=== PATIENT | male | born 1955 | race Caucasian/White ===

== ENCOUNTER 2022-04-12 13:09 | Inpatient (IN) | payer OTHER ==
[2022-04-12] MEDS ORDERED: SODIUM CHLORIDE 1,000 ML IV STA ×2 (13:46→14:57)
[2022-04-12] MEDS ORDERED: ACETAMINOPHEN 1000 MG/100 ML BAG IVPB ONE (13:46)
[2022-04-12] MEDS ORDERED: VANCOMYCIN 1 GM in D5W (PRE-DOCKED) 1,000 MG/250 ML IVPB ONE (14:01)
[2022-04-12] MEDS ORDERED: PIPERACILLIN/TAZOB 4.5 GM 4.5 GM in DEXTROSE 5%-WATER 100 ML IVPB ONE (14:01)
[2022-04-12] MEDS ORDERED: CALCIUM GLUCONATE 10% - 1,000 MG/10 ML VIAL IVPB ONE (14:03)
[2022-04-12] MEDS ORDERED: DEXTROSE 50%-WATER - 25 GM/50 ML VIAL IVPUSH ONE (14:04)
[2022-04-12] MEDS ORDERED: INSULIN REGULAR HUMAN 100 UNITS/ML *VIAL IVPUSH ONE (14:05)
[2022-04-12] MEDS ORDERED: ALBUTEROL SO4 0.083% IH SOL 2.5 MG/3 ML VIAL.NEB. NEB ONE ×2 (14:07→14:26)
[2022-04-12] MEDS ORDERED: PIPERACILLIN/TAZOB 4.5 GM 4.5 GM/100 ML BAG IVPB ONE (14:26)
[2022-04-12] MEDS ORDERED: DEXTROSE 50%-WATER 25 GM/50 ML DISP.SYRIN ONE (14:26)
[2022-04-12] MEDS ORDERED: CALCIUM GLUC IN NACL, ISO-OSM 1 GM/50 ML BAG IVPB ONE (14:26)
[2022-04-12] MEDS ORDERED: ACETAMINOPHEN INJECTION 100 ML IVPB ONE (14:26)
[2022-04-12] MEDS ORDERED: VANCOMYCIN/WATER FOR INJ (PEG) 1,000 MG/200 ML BAG IVPB ONE (14:27)
[2022-04-12 15:25] LABS: HEMATOCRIT 29.9 % (35.4-49); HEMOGLOBIN 9.8 GM/dL (11.7-16.9); MCH 31.3 pg (25.7-33.7); MCHC 32.7 g/dl (32.0-35.9); MEAN CELL VOLUME 95.7 fl (80-96); MEAN PLT VOLUME 8.2 fl (7.5-11.1); PLATELET COUNT 482 10^3/uL (134-434); RBC 3.12 M/mm3 (4.00-5.60); RDW 13.9 % (11.9-15.9); WHITE BLOOD COUNT 26.5 K/mm3 (4.0-10.0)
[2022-04-12 15:32] LABS: INR 1.15 (0.83-1.09); PROTHROMBIN TIME (PATIENT) 13.2 SEC (9.7-13.0)
[2022-04-12 15:35] LABS: ACTIVATED PTT 36.1 SECONDS (25.2-36.5); VENOUS BASE EXCESS -4.7 mmol/L (-2-2); VENOUS O2 SATURATION 75.1 % (70-80); VENOUS PCO2 42.3 mmHg (38-52); VENOUS PH 7.318 (7.310-7.410)
[2022-04-12 15:45] LABS: CHLORIDE 90 mmol/L (98-107); SODIUM 125 mmol/L (136-145)
[2022-04-12 15:46] LABS: ANISOCYTOSIS 3+; MACROCYTOSIS 0
[2022-04-12 15:47] LABS: ALBUMIN 2.4 g/dl (3.4-5.0)
[2022-04-12 15:48] LABS: CALCIUM 8.6 mg/dL (8.5-10.1); CO2 24 mmol/L (21-32); GLUCOSE,RANDOM 83 mg/dL (74-106)
[2022-04-12 15:49] LABS: CREATININE 0.7 mg/dL (0.55-1.3); SGPT/ALT 37 U/L (13-61)
[2022-04-12 15:51] LABS: SGOT/AST 33 U/L (15-37)
[2022-04-12 15:52] LABS: BILIRUBIN,TOTAL 0.3 mg/dL (0.2-1)
[2022-04-12 15:53] LABS: ALK PHOS 153 U/L (45-117)
[2022-04-12 15:55] LABS: ANION GAP 11 MMOL/L (8-16)
[2022-04-12 16:14] LABS: LACTIC ACID 2.3 mmol/L (0.4-2.0)
[2022-04-12] MEDS ORDERED: NOREPINEPHRINE BITARTRATE 4,000 MCG in DEXTROSE 5%-WATER - 496 ML IV SCH (17:00)
[2022-04-12] MEDS ORDERED: NOREPINEPHRINE BITARTRATE/D5W 8 MG/250 ML BAG IVPB ONE (17:10)
[2022-04-12] MEDS: NOREPINEPHRINE BITARTRATE/D5W 8 MG/250 ML BAG IVPB SCH (17:28)
[2022-04-12] MEDS ORDERED: AZITHROMYCIN IVPB 500 MG in DEXTROSE 5%-WATER - 250 ML IVPB ONE (17:48)
[2022-04-12] MEDS ORDERED: LACTATED RINGERS SOLUTION 1,000 ML/1,000 ML INFUS.BAG IV SCH (18:15)
[2022-04-12] MEDS ORDERED: metroNIDAZOLE 500 MG TABLET GT ONE (18:44)
[2022-04-12 18:50] LABS: URINE APPEARANCE CLOUDY; URINE BILIRUBIN NEGATIVE (NEGATIVE); URINE COLOR YELLOW; URINE GLUCOSE (UA) NEGATIVE (NEGATIVE); URINE KETONE NEGATIVE (NEGATIVE); URINE LEUK ESTERASE NEGATIVE (NEGATIVE); URINE NITRITE NEGATIVE (NEGATIVE); URINE PROTEIN TRACE (NEGATIVE); URINE UROBILINOGEN 0.2 mg/dL (0.2-1.0)
[2022-04-12] MEDS ORDERED: AZITHROMYCIN IVPB 500 MG/250 ML BAG IVPB ONE (19:16)
[2022-04-12] MEDS ORDERED: HEPARIN NA (PORCINE) 5,000 UNITS/ML 1ML VIAL ONE (21:32)
[2022-04-12] MEDS ORDERED: QUEtiapine FUMARATE 25 MG TABLET ONE (21:34)
[2022-04-12] MEDS ORDERED: ASCORBIC ACID 500 MG TABLET (FP) ONE (21:34)
[2022-04-12] MEDS ORDERED: PIPERACILLIN/TAZOB 3.375 GM 3.375 GM in DEXTROSE 5%-WATER - 50 ML IVPB SCH (22:00)
[2022-04-12 22:40] LABS: CALCIUM 8.5 mg/dL (8.5-10.1)
[2022-04-12 22:42] LABS: BLOOD UREA NITROGEN 64.5 mg/dL (7-18)
[2022-04-12 22:46] LABS: CREATININE 0.7 mg/dL (0.55-1.3)
[2022-04-13] MEDS: HEPARIN NA (PORCINE) 5,000 UNITS/ML 1ML VIAL SQ SCH ×4 (00:36→21:20)
[2022-04-13] MEDS: INSULIN SLIDING SCALE (NOVOLOG) 1 VIAL SQ SCH ×5 (00:36→21:33)
[2022-04-13] MEDS: ASCORBIC ACID 500 MG TABLET (FP) PO SCH ×3 (00:37→21:20)
[2022-04-13] MEDS: QUEtiapine FUMARATE 25 MG TABLET GT SCH ×2 (00:37→21:20)
[2022-04-13] MEDS: PIPERACILLIN/TAZOB 3.375 GM 3.375 GM in DEXTROSE 5%-WATER - 50 ML IVPB SCH ×2 (00:37→06:04)
[2022-04-13] MEDS: VANCOMYCIN 250 MG/5 ML ORAL SOLUTION GT SCH ×2 (01:00→06:53)
[2022-04-13] MEDS ORDERED: fentaNYL CITRATE 250 MCG/5 ML VIAL ONE (01:00)
[2022-04-13] MEDS ORDERED: MIDAZOLAM HCL 2 MG/2 ML SINGLE DOSE VIAL ONE (01:07)
[2022-04-13] MEDS ORDERED: DEXTROSE 5%-NORMAL SALINE 1,000 ML IV SCH (01:45)
[2022-04-13] MEDS ORDERED: MIDAZOLAM HCL 2 MG/2 ML SINGLE DOSE VIAL IVPUSH ONE (01:51)
[2022-04-13 07:26] LABS: HEMATOCRIT 23.4 % (35.4-49); HEMOGLOBIN 7.9 GM/dL (11.7-16.9); MCHC 33.6 g/dl (32.0-35.9); MEAN CELL VOLUME 95.4 fl (80-96); MEAN PLT VOLUME 8.2 fl (7.5-11.1); PLATELET COUNT 388 10^3/uL (134-434); RBC 2.46 M/mm3 (4.00-5.60); WHITE BLOOD COUNT 24.7 K/mm3 (4.0-10.0)
[2022-04-13 07:37] LABS: ACTIVATED PTT 37.1 SECONDS (25.2-36.5)
[2022-04-13 07:55] LABS: PHOSPHOROUS 4.1 mg/dL (2.5-4.9)
[2022-04-13 07:56] LABS: CREATININE 0.7 mg/dL (0.55-1.3)
[2022-04-13 07:57] LABS: BILIRUBIN,TOTAL 0.3 mg/dL (0.2-1); TOT PROT 5.8 g/dl (6.4-8.2)
[2022-04-13 08:21] LABS: INR 1.33 (0.83-1.09); PROTHROMBIN TIME (PATIENT) 15.3 SEC (9.7-13.0)
[2022-04-13 09:05] LABS: ANISOCYTOSIS 1+; MACROCYTOSIS 0
[2022-04-13] MEDS ORDERED: VANCOMYCIN 1 GM/200 ML PREMIX BAG (RESTRICTED TO ID ONLY) IVPB SCH (10:00)
[2022-04-13] MEDS ORDERED: VANCOMYCIN 1 GM in D5W (PRE-DOCKED) 1,000 MG/250 ML IVPB SCH (10:00)
[2022-04-13] MEDS: MUPIROCIN 2% TOPICAL OINTMENT FOR DECOLONIZATION NS SCH ×2 (10:07→21:20)
[2022-04-13] MEDS: FAMOTIDINE 40 MG/5 ML ORAL SUSPENSION GT SCH ×2 (10:08→21:32)
[2022-04-13] MEDS: VANCOMYCIN 250 MG/5 ML ORAL SOLUTION PO SCH ×3 (11:45→17:21)
[2022-04-13] MEDS: NYSTATIN POWDER 100,000 UNITS/GM - 15 GM TOPICAL POWDER TP SCH ×2 (11:47→21:21)
[2022-04-13] MEDS ORDERED: DEXTROSE 5%-0.45% SALINE 1,000 ML IV SCH ×2 (13:45→14:45)
[2022-04-13] MEDS ORDERED: SODIUM ZIRCONIUM CYCLOSILICATE (LOKELMA) 5 GM PACKET GT ONE (14:11)
[2022-04-13] MEDS: PANTOPRAZOLE SODIUM 40 MG VIAL IVPUSH SCH (14:23)
[2022-04-13] MEDS ORDERED: IRON SUCROSE INJECTION 200 MG in SODIUM CHLORIDE 90 ML IVPB ONE (15:15)
[2022-04-13] MEDS: MULTIVIT-MINERALS ORAL LIQUID GT SCH (16:15)
[2022-04-13] MEDS: AMINO ACIDS/PROTEIN HYDROLYS 30 ML LIQUID.PKT GT SCH (17:20)
[2022-04-13] MEDS: LEVOTHYROXINE NA 150 MCG TABLET GT SCH (17:20)
[2022-04-13] MEDS: CHLORHEXIDINE GLUCONATE 4% CLEANSER FOR DECOLONIZATION TP SCH (21:20)
[2022-04-13] MEDS: ZINC OXIDE 20% TOPICAL OINTMENT 30 GM TUBE TP SCH (21:21)
[2022-04-13] MEDS: METOPROLOL TARTRATE 50 MG TABLET (FP) GT SCH (22:35)
[2022-04-13 23:56] LABS: HEMOGLOBIN 7.3 GM/dL (11.7-16.9); MCH 31.9 pg (25.7-33.7); MCHC 33.4 g/dl (32.0-35.9); MEAN CELL VOLUME 95.4 fl (80-96); MEAN PLT VOLUME 7.7 fl (7.5-11.1); PLATELET COUNT 338 10^3/uL (134-434); RBC 2.31 M/mm3 (4.00-5.60); WHITE BLOOD COUNT 10.4 K/mm3 (4.0-10.0)
[2022-04-14 00:17] LABS: BLOOD UREA NITROGEN 58.6 mg/dL (7-18); CALCIUM 8.1 mg/dL (8.5-10.1)
[2022-04-14 00:20] LABS: CREATININE 0.7 mg/dL (0.55-1.3)
[2022-04-14] MEDS: VANCOMYCIN 250 MG/5 ML ORAL SOLUTION PO SCH ×4 (00:47→17:31)
[2022-04-14] MEDS ORDERED: DEXTROSE 5%-WATER 500 ML INFUS.BAG IVPB ONE (01:15)
[2022-04-14] MEDS: ZINC OXIDE 20% TOPICAL OINTMENT 30 GM TUBE TP SCH ×3 (05:15→21:52)
[2022-04-14] MEDS: ZINC SULFATE 220 MG TABLET GT SCH (06:13)
[2022-04-14] MEDS: INSULIN SLIDING SCALE (NOVOLOG) 1 VIAL SQ SCH ×4 (06:13→22:02)
[2022-04-14 07:22] LABS: HEMATOCRIT 22.9 % (35.4-49); HEMOGLOBIN 7.7 GM/dL (11.7-16.9); MCHC 33.5 g/dl (32.0-35.9); MEAN CELL VOLUME 95.5 fl (80-96); MEAN PLT VOLUME 7.8 fl (7.5-11.1); PLATELET COUNT 315 10^3/uL (134-434); WHITE BLOOD COUNT 8.6 K/mm3 (4.0-10.0)
[2022-04-14 07:44] LABS: ALBUMIN 1.8 g/dl (3.4-5.0); CALCIUM 7.9 mg/dL (8.5-10.1)
[2022-04-14 07:45] LABS: MAGNESIUM 1.7 mg/dL (1.8-2.4); PHOSPHOROUS 2.9 mg/dL (2.5-4.9)
[2022-04-14 07:46] LABS: CREATININE 0.7 mg/dL (0.55-1.3)
[2022-04-14 07:47] LABS: BILIRUBIN,TOTAL 0.3 mg/dL (0.2-1); TOT PROT 5.3 g/dl (6.4-8.2)
[2022-04-14] MEDS: AMINO ACIDS/PROTEIN HYDROLYS 30 ML LIQUID.PKT GT SCH ×2 (08:15→17:27)
[2022-04-14 09:07] LABS: ANISOCYTOSIS 3+; MACROCYTOSIS 0
[2022-04-14] MEDS: METOPROLOL TARTRATE 50 MG TABLET (FP) GT SCH ×2 (09:15→21:51)
[2022-04-14] MEDS: MULTIVIT-MINERALS ORAL LIQUID GT SCH (09:15)
[2022-04-14] MEDS: PANTOPRAZOLE SODIUM 40 MG VIAL IVPUSH SCH (09:16)
[2022-04-14] MEDS: THIAMINE HCL 200 MG/2 ML VIAL IVPB SCH (09:17)
[2022-04-14] MEDS: ENOXAPARIN NA (PORCINE) 40 MG/0.4 ML DISP.SYRIN SQ SCH (09:18)
[2022-04-14] MEDS: FAMOTIDINE 40 MG/5 ML ORAL SUSPENSION GT SCH ×2 (09:18→21:51)
[2022-04-14] MEDS: LACTOBACILLUS ACIDOPHILUS 1 TABLET GT SCH (09:18)
[2022-04-14] MEDS: MUPIROCIN 2% TOPICAL OINTMENT FOR DECOLONIZATION NS SCH ×2 (09:54→21:51)
[2022-04-14] MEDS: ASCORBIC ACID 500 MG TABLET (FP) PO SCH ×2 (09:55→21:51)
[2022-04-14] MEDS ORDERED: IRON SUCROSE INJECTION 200 MG in SODIUM CHLORIDE 90 ML IVPB ONE (10:00)
[2022-04-14] MEDS: LACTATED RINGERS SOLUTION 1,000 ML/1,000 ML INFUS.BAG IV SCH (10:00)
[2022-04-14] MEDS: NYSTATIN POWDER 100,000 UNITS/GM - 15 GM TOPICAL POWDER TP SCH ×2 (10:00→21:52)
[2022-04-14] MEDS: LEVOTHYROXINE NA 150 MCG TABLET GT SCH (17:31)
[2022-04-14] MEDS: NOREPINEPHRINE BITARTRATE/D5W 8 MG/250 ML BAG IVPB SCH (21:34)
[2022-04-14] MEDS: CHLORHEXIDINE GLUCONATE 4% CLEANSER FOR DECOLONIZATION TP SCH (21:51)
[2022-04-14] MEDS: QUEtiapine FUMARATE 25 MG TABLET GT SCH (21:51)
[2022-04-15] MEDS: VANCOMYCIN 250 MG/5 ML ORAL SOLUTION PO SCH ×4 (00:21→17:02)
[2022-04-15] MEDS: INSULIN SLIDING SCALE (NOVOLOG) 1 VIAL SQ SCH ×4 (06:20→21:38)
[2022-04-15] MEDS: ZINC OXIDE 20% TOPICAL OINTMENT 30 GM TUBE TP SCH ×3 (06:21→21:39)
[2022-04-15 07:55] LABS: HEMATOCRIT 22.9 % (35.4-49); HEMOGLOBIN 7.7 GM/dL (11.7-16.9); MCHC 33.6 g/dl (32.0-35.9); MEAN CELL VOLUME 95.3 fl (80-96); MEAN PLT VOLUME 7.9 fl (7.5-11.1); PLATELET COUNT 330 10^3/uL (134-434); RDW 14.2 % (11.9-15.9); WHITE BLOOD COUNT 9.3 K/mm3 (4.0-10.0)
[2022-04-15] MEDS: MULTIVIT-MINERALS ORAL LIQUID GT SCH (08:00)
[2022-04-15 08:11] LABS: CALCIUM 8.5 mg/dL (8.5-10.1)
[2022-04-15 08:12] LABS: BLOOD UREA NITROGEN 50.5 mg/dL (7-18); MAGNESIUM 1.8 mg/dL (1.8-2.4)
[2022-04-15 08:15] LABS: CREATININE 0.6 mg/dL (0.55-1.3)
[2022-04-15] MEDS: AMINO ACIDS/PROTEIN HYDROLYS 30 ML LIQUID.PKT GT SCH ×2 (08:28→16:50)
[2022-04-15] MEDS: ENOXAPARIN NA (PORCINE) 40 MG/0.4 ML DISP.SYRIN SQ SCH (09:29)
[2022-04-15] MEDS: FAMOTIDINE 40 MG/5 ML ORAL SUSPENSION GT SCH ×2 (09:30→21:38)
[2022-04-15] MEDS: METOPROLOL TARTRATE 50 MG TABLET (FP) GT SCH ×2 (09:30→21:38)
[2022-04-15] MEDS: LACTOBACILLUS ACIDOPHILUS 1 TABLET GT SCH (09:30)
[2022-04-15] MEDS: ASCORBIC ACID 500 MG TABLET (FP) PO SCH ×2 (09:30→21:37)
[2022-04-15] MEDS: LACTATED RINGERS SOLUTION 1,000 ML/1,000 ML INFUS.BAG IV SCH (09:31)
[2022-04-15] MEDS: MUPIROCIN 2% TOPICAL OINTMENT FOR DECOLONIZATION NS SCH ×2 (09:31→21:38)
[2022-04-15] MEDS ORDERED: IRON SUCROSE INJECTION 200 MG in SODIUM CHLORIDE 90 ML IVPB ONE (10:00)
[2022-04-15] MEDS: PANTOPRAZOLE SODIUM 40 MG VIAL IVPUSH SCH (10:04)
[2022-04-15] MEDS: THIAMINE HCL 200 MG/2 ML VIAL IVPB SCH (10:04)
[2022-04-15] MEDS: NYSTATIN POWDER 100,000 UNITS/GM - 15 GM TOPICAL POWDER TP SCH ×2 (10:05→21:38)
[2022-04-15] MEDS: LEVOTHYROXINE NA 150 MCG TABLET GT SCH (16:50)
[2022-04-15] MEDS ORDERED: ACETAMINOPHEN 1000 MG/100 ML BAG IVPB ONE (20:27)
[2022-04-15] MEDS ORDERED: ACETAMINOPHEN 650 MG/20.3 ML ORAL SOLUTION (CUPS) PO PRN (20:27)
[2022-04-15] MEDS: ZINC SULFATE 220 MG TABLET GT SCH (21:37)
[2022-04-15] MEDS: CHLORHEXIDINE GLUCONATE 4% CLEANSER FOR DECOLONIZATION TP SCH (21:38)
[2022-04-15] MEDS: NOREPINEPHRINE BITARTRATE/D5W 8 MG/250 ML BAG IVPB SCH (21:38)
[2022-04-15] MEDS: QUEtiapine FUMARATE 25 MG TABLET GT SCH (21:38)
[2022-04-15] MEDS: ASCORBIC ACID 500 MG TABLET (FP) GT SCH (21:59)
[2022-04-16] MEDS: VANCOMYCIN 250 MG/5 ML ORAL SOLUTION PO SCH ×4 (00:26→17:05)
[2022-04-16] MEDS: ZINC OXIDE 20% TOPICAL OINTMENT 30 GM TUBE TP SCH ×3 (06:03→21:56)
[2022-04-16] MEDS: INSULIN SLIDING SCALE (NOVOLOG) 1 VIAL SQ SCH ×4 (06:09→21:56)
[2022-04-16] MEDS: ZINC SULFATE 220 MG TABLET GT SCH (06:32)
[2022-04-16 07:30] LABS: HEMATOCRIT 23.9 % (35.4-49); HEMOGLOBIN 7.9 GM/dL (11.7-16.9); MCH 31.4 pg (25.7-33.7); MEAN CELL VOLUME 95.3 fl (80-96); MEAN PLT VOLUME 7.8 fl (7.5-11.1); PLATELET COUNT 298 10^3/uL (134-434); RDW 14.3 % (11.9-15.9); WHITE BLOOD COUNT 23.4 K/mm3 (4.0-10.0)
[2022-04-16 08:00] LABS: BLOOD UREA NITROGEN 46.6 mg/dL (7-18); CALCIUM 9.1 mg/dL (8.5-10.1); MAGNESIUM 1.6 mg/dL (1.8-2.4)
[2022-04-16 08:01] LABS: PHOSPHOROUS 2.4 mg/dL (2.5-4.9)
[2022-04-16 08:03] LABS: CREATININE 0.5 mg/dL (0.55-1.3)
[2022-04-16] MEDS: AMINO ACIDS/PROTEIN HYDROLYS 30 ML LIQUID.PKT GT SCH ×2 (08:53→16:53)
[2022-04-16] MEDS: ENOXAPARIN NA (PORCINE) 40 MG/0.4 ML DISP.SYRIN SQ SCH (09:53)
[2022-04-16] MEDS: MULTIVIT-MINERALS ORAL LIQUID GT SCH (09:53)
[2022-04-16] MEDS: FAMOTIDINE 40 MG/5 ML ORAL SUSPENSION GT SCH ×2 (09:53→21:56)
[2022-04-16] MEDS: ASCORBIC ACID 500 MG TABLET (FP) GT SCH ×2 (09:53→21:56)
[2022-04-16] MEDS: LACTOBACILLUS ACIDOPHILUS 1 TABLET GT SCH (09:53)
[2022-04-16] MEDS: METOPROLOL TARTRATE 50 MG TABLET (FP) GT SCH ×2 (09:54→21:56)
[2022-04-16] MEDS: PANTOPRAZOLE SODIUM 40 MG VIAL IVPUSH SCH (10:26)
[2022-04-16] MEDS: NYSTATIN POWDER 100,000 UNITS/GM - 15 GM TOPICAL POWDER TP SCH ×2 (10:38→21:56)
[2022-04-16] MEDS: THIAMINE HCL 200 MG/2 ML VIAL IVPB SCH (10:38)
[2022-04-16] MEDS: MUPIROCIN 2% TOPICAL OINTMENT FOR DECOLONIZATION NS SCH ×2 (10:39→21:56)
[2022-04-16] MEDS: LACTATED RINGERS SOLUTION 1,000 ML/1,000 ML INFUS.BAG IV SCH (10:39)
[2022-04-16] MEDS ORDERED: KETOCONAZOLE 2 % SHAMPOO 120 ML BOTTLE TP SCH (14:16)
[2022-04-16] MEDS: LEVOTHYROXINE NA 150 MCG TABLET GT SCH (16:53)
[2022-04-16] MEDS: NOREPINEPHRINE BITARTRATE/D5W 8 MG/250 ML BAG IVPB SCH (16:53)
[2022-04-16 18:55] LABS: HEMATOCRIT 23.9 % (35.4-49); HEMOGLOBIN 7.9 GM/dL (11.7-16.9); MCH 31.4 pg (25.7-33.7); MCHC 32.9 g/dl (32.0-35.9); MEAN CELL VOLUME 95.5 fl (80-96); MEAN PLT VOLUME 7.8 fl (7.5-11.1); PLATELET COUNT 283 10^3/uL (134-434); WHITE BLOOD COUNT 19.9 K/mm3 (4.0-10.0)
[2022-04-16] MEDS: CHLORHEXIDINE GLUCONATE 4% CLEANSER FOR DECOLONIZATION TP SCH (21:56)
[2022-04-16] MEDS: QUEtiapine FUMARATE 25 MG TABLET GT SCH (21:56)
[2022-04-17] MEDS: VANCOMYCIN 250 MG/5 ML ORAL SOLUTION PO SCH ×4 (00:30→17:00)
[2022-04-17] MEDS: ZINC OXIDE 20% TOPICAL OINTMENT 30 GM TUBE TP SCH ×3 (05:48→21:44)
[2022-04-17] MEDS: ZINC SULFATE 220 MG CAPSULE (FP) GT SCH (06:02)
[2022-04-17] MEDS: INSULIN SLIDING SCALE (NOVOLOG) 1 VIAL SQ SCH ×4 (06:09→22:05)
[2022-04-17 08:38] LABS: BASO % 0.6 % (0-2.0); EOS % 3.5 % (0-4.5); HEMATOCRIT 22.3 % (35.4-49); HEMOGLOBIN 7.3 GM/dL (11.7-16.9); LYMPH % 6.3 % (8-40); MCH 31.6 pg (25.7-33.7); MCHC 32.9 g/dl (32.0-35.9); MEAN CELL VOLUME 96.2 fl (80-96); MEAN PLT VOLUME 7.7 fl (7.5-11.1); MONO % 6.6 % (3.8-10.2); PLATELET COUNT 276 10^3/uL (134-434); RBC 2.32 M/mm3 (4.00-5.60); RDW 14.2 % (11.9-15.9); WHITE BLOOD COUNT 14.7 K/mm3 (4.0-10.0)
[2022-04-17 08:51] LABS: CALCIUM 8.9 mg/dL (8.5-10.1)
[2022-04-17 08:52] LABS: ALBUMIN 1.7 g/dl (3.4-5.0); BLOOD UREA NITROGEN 41.6 mg/dL (7-18)
[2022-04-17 08:55] LABS: CREATININE 0.5 mg/dL (0.55-1.3)
[2022-04-17 08:58] LABS: BILIRUBIN,TOTAL 0.2 mg/dL (0.2-1); TOT PROT 5.1 g/dl (6.4-8.2)
[2022-04-17] MEDS: ENOXAPARIN NA (PORCINE) 40 MG/0.4 ML DISP.SYRIN SQ SCH (09:15)
[2022-04-17] MEDS: PANTOPRAZOLE SODIUM 40 MG VIAL IVPUSH SCH (09:16)
[2022-04-17] MEDS: MUPIROCIN 2% TOPICAL OINTMENT FOR DECOLONIZATION NS SCH ×2 (09:16→21:44)
[2022-04-17] MEDS: AMINO ACIDS/PROTEIN HYDROLYS 30 ML LIQUID.PKT GT SCH ×2 (09:16→17:00)
[2022-04-17] MEDS: METOPROLOL TARTRATE 50 MG TABLET (FP) GT SCH ×2 (09:16→21:44)
[2022-04-17] MEDS: NYSTATIN POWDER 100,000 UNITS/GM - 15 GM TOPICAL POWDER TP SCH ×2 (09:16→21:44)
[2022-04-17] MEDS: ASCORBIC ACID 500 MG TABLET (FP) GT SCH ×2 (09:16→21:44)
[2022-04-17] MEDS: LACTOBACILLUS ACIDOPHILUS 1 TABLET GT SCH (09:16)
[2022-04-17] MEDS: MULTIVIT-MINERALS ORAL LIQUID GT SCH (09:16)
[2022-04-17] MEDS: THIAMINE HCL 200 MG/2 ML VIAL IVPB SCH (10:14)
[2022-04-17] MEDS: FAMOTIDINE 40 MG/5 ML ORAL SUSPENSION GT SCH ×2 (10:52→21:44)
[2022-04-17] MEDS: LACTATED RINGERS SOLUTION 1,000 ML/1,000 ML INFUS.BAG IV SCH (12:51)
[2022-04-17] MEDS: NOREPINEPHRINE BITARTRATE/D5W 8 MG/250 ML BAG IVPB SCH (16:59)
[2022-04-17] MEDS: LEVOTHYROXINE NA 150 MCG TABLET GT SCH (16:59)
[2022-04-17] MEDS: CHLORHEXIDINE GLUCONATE 4% CLEANSER FOR DECOLONIZATION TP SCH (21:44)
[2022-04-17] MEDS: QUEtiapine FUMARATE 25 MG TABLET GT SCH (21:44)
[2022-04-18] MEDS: VANCOMYCIN 250 MG/5 ML ORAL SOLUTION PO SCH ×5 (00:49→18:55)
[2022-04-18] MEDS: ACETAMINOPHEN 650 MG/20.3 ML ORAL SOLUTION (CUPS) GT PRN (05:37)
[2022-04-18] MEDS: ZINC OXIDE 20% TOPICAL OINTMENT 30 GM TUBE TP SCH ×3 (06:01→22:30)
[2022-04-18] MEDS: ZINC SULFATE 220 MG CAPSULE (FP) GT SCH (06:22)
[2022-04-18] MEDS: INSULIN SLIDING SCALE (NOVOLOG) 1 VIAL SQ SCH ×4 (06:22→22:48)
[2022-04-18] MEDS ORDERED: THIAMINE HCL 200 MG/2 ML VIAL IVPB SCH (10:00)
[2022-04-18] MEDS ORDERED: MUPIROCIN 2% TOPICAL OINTMENT FOR DECOLONIZATION NS SCH (10:00)
[2022-04-18 10:35] LABS: HEMOGLOBIN 8.9 GM/dL (11.7-16.9); MCH 31.8 pg (25.7-33.7); MCHC 34.1 g/dl (32.0-35.9); MEAN CELL VOLUME 93.2 fl (80-96); MEAN PLT VOLUME 7.5 fl (7.5-11.1); PLATELET COUNT 289 10^3/uL (134-434); RBC 2.79 M/mm3 (4.00-5.60); RDW 15.5 % (11.9-15.9); WHITE BLOOD COUNT 10.2 K/mm3 (4.0-10.0)
[2022-04-18] MEDS: LACTOBACILLUS ACIDOPHILUS 1 TABLET GT SCH (10:46)
[2022-04-18] MEDS: ENOXAPARIN NA (PORCINE) 40 MG/0.4 ML DISP.SYRIN SQ SCH (10:46)
[2022-04-18] MEDS: AMINO ACIDS/PROTEIN HYDROLYS 30 ML LIQUID.PKT GT SCH ×2 (10:46→18:55)
[2022-04-18] MEDS: METOPROLOL TARTRATE 50 MG TABLET (FP) GT SCH ×2 (10:46→22:28)
[2022-04-18] MEDS: PANTOPRAZOLE SODIUM 40 MG VIAL IVPUSH SCH (10:47)
[2022-04-18] MEDS: FAMOTIDINE 40 MG/5 ML ORAL SUSPENSION GT SCH ×2 (10:47→22:30)
[2022-04-18] MEDS: ASCORBIC ACID 500 MG TABLET (FP) GT SCH ×2 (10:47→22:28)
[2022-04-18] MEDS: MULTIVIT-MINERALS ORAL LIQUID GT SCH (10:48)
[2022-04-18 11:02] LABS: CALCIUM 9.2 mg/dL (8.5-10.1)
[2022-04-18 11:03] LABS: ALBUMIN 1.7 g/dl (3.4-5.0); BLOOD UREA NITROGEN 40.2 mg/dL (7-18)
[2022-04-18 11:06] LABS: CREATININE 0.5 mg/dL (0.55-1.3)
[2022-04-18 11:07] LABS: BILIRUBIN,TOTAL 0.4 mg/dL (0.2-1); TOT PROT 5.2 g/dl (6.4-8.2)
[2022-04-18] MEDS: NYSTATIN POWDER 100,000 UNITS/GM - 15 GM TOPICAL POWDER TP SCH ×2 (15:02→22:29)
[2022-04-18] MEDS: LEVOTHYROXINE NA 150 MCG TABLET GT SCH (18:56)
[2022-04-18] MEDS ORDERED: CHLORHEXIDINE GLUCONATE 4% CLEANSER FOR DECOLONIZATION TP SCH (22:00)
[2022-04-18] MEDS: QUEtiapine FUMARATE 25 MG TABLET GT SCH (22:28)
[2022-04-19] MEDS: ACETAMINOPHEN 650 MG/20.3 ML ORAL SOLUTION (CUPS) GT PRN (05:17)
[2022-04-19] MEDS: ZINC OXIDE 20% TOPICAL OINTMENT 30 GM TUBE TP SCH ×3 (05:37→22:21)
[2022-04-19] MEDS: VANCOMYCIN 250 MG/5 ML ORAL SOLUTION PO SCH ×3 (06:33→18:40)
[2022-04-19] MEDS: INSULIN SLIDING SCALE (NOVOLOG) 1 VIAL SQ SCH ×4 (06:34→22:09)
[2022-04-19] MEDS: ZINC SULFATE 220 MG CAPSULE (FP) GT SCH (06:35)
[2022-04-19] MEDS: PANTOPRAZOLE SODIUM 40 MG VIAL IVPUSH SCH (11:03)
[2022-04-19] MEDS: MULTIVIT-MINERALS ORAL LIQUID GT SCH (11:03)
[2022-04-19] MEDS: METOPROLOL TARTRATE 50 MG TABLET (FP) GT SCH ×2 (11:04→21:33)
[2022-04-19] MEDS: ENOXAPARIN NA (PORCINE) 40 MG/0.4 ML DISP.SYRIN SQ SCH (11:04)
[2022-04-19] MEDS: ASCORBIC ACID 500 MG TABLET (FP) GT SCH ×2 (11:04→21:33)
[2022-04-19] MEDS: NYSTATIN POWDER 100,000 UNITS/GM - 15 GM TOPICAL POWDER TP SCH ×2 (11:04→22:20)
[2022-04-19] MEDS: LACTOBACILLUS ACIDOPHILUS 1 TABLET GT SCH (11:04)
[2022-04-19] MEDS: AMINO ACIDS/PROTEIN HYDROLYS 30 ML LIQUID.PKT GT SCH ×2 (11:04→18:39)
[2022-04-19] MEDS: FAMOTIDINE 40 MG/5 ML ORAL SUSPENSION GT SCH ×2 (11:05→21:33)
[2022-04-19] MEDS: SCOPOLAMINE HYDROBROMIDE 1 PATCH PATCH.TD72 TD SCH (15:20)
[2022-04-19] MEDS: LEVOTHYROXINE NA 150 MCG TABLET GT SCH (18:40)
[2022-04-19] MEDS: QUEtiapine FUMARATE 25 MG TABLET GT SCH (21:33)
[2022-04-20] MEDS: VANCOMYCIN 250 MG/5 ML ORAL SOLUTION PO SCH ×4 (00:20→18:23)
[2022-04-20] MEDS: INSULIN SLIDING SCALE (NOVOLOG) 1 VIAL SQ SCH ×4 (06:01→21:21)
[2022-04-20] MEDS: ZINC SULFATE 220 MG CAPSULE (FP) GT SCH (06:07)
[2022-04-20] MEDS: ZINC OXIDE 20% TOPICAL OINTMENT 30 GM TUBE TP SCH ×2 (06:08→12:15)
[2022-04-20] MEDS: METOPROLOL TARTRATE 50 MG TABLET (FP) GT SCH ×2 (10:13→21:20)
[2022-04-20] MEDS: AMINO ACIDS/PROTEIN HYDROLYS 30 ML LIQUID.PKT GT SCH ×2 (10:13→18:23)
[2022-04-20] MEDS: ENOXAPARIN NA (PORCINE) 40 MG/0.4 ML DISP.SYRIN SQ SCH (10:13)
[2022-04-20] MEDS: LACTOBACILLUS ACIDOPHILUS 1 TABLET GT SCH (10:14)
[2022-04-20] MEDS: NYSTATIN POWDER 100,000 UNITS/GM - 15 GM TOPICAL POWDER TP SCH (10:14)
[2022-04-20] MEDS: FAMOTIDINE 40 MG/5 ML ORAL SUSPENSION GT SCH ×2 (10:14→21:29)
[2022-04-20] MEDS: ASCORBIC ACID 500 MG TABLET (FP) GT SCH ×2 (10:14→21:20)
[2022-04-20] MEDS: MULTIVIT-MINERALS ORAL LIQUID GT SCH (10:14)
[2022-04-20] MEDS: PANTOPRAZOLE SODIUM 40 MG VIAL IVPUSH SCH (10:15)
[2022-04-20 16:30] VITALS: BMI 22.7
[2022-04-20] MEDS: LEVOTHYROXINE NA 150 MCG TABLET GT SCH (18:23)
[2022-04-20] MEDS: QUEtiapine FUMARATE 25 MG TABLET GT SCH (21:21)
[2022-04-21] MEDS: NYSTATIN POWDER 100,000 UNITS/GM - 15 GM TOPICAL POWDER TP SCH ×3 (00:15→21:29)
[2022-04-21] MEDS: VANCOMYCIN 250 MG/5 ML ORAL SOLUTION PO SCH ×4 (00:30→17:40)
[2022-04-21] MEDS: ZINC OXIDE 20% TOPICAL OINTMENT 30 GM TUBE TP SCH ×4 (00:47→21:29)
[2022-04-21] MEDS: ZINC SULFATE 220 MG CAPSULE (FP) GT SCH (06:00)
[2022-04-21] MEDS: INSULIN SLIDING SCALE (NOVOLOG) 1 VIAL SQ SCH ×4 (06:00→21:28)
[2022-04-21] MEDS: AMINO ACIDS/PROTEIN HYDROLYS 30 ML LIQUID.PKT GT SCH ×2 (08:45→17:40)
[2022-04-21] MEDS: LACTOBACILLUS ACIDOPHILUS 1 TABLET GT SCH (09:27)
[2022-04-21] MEDS: PANTOPRAZOLE SODIUM 40 MG VIAL IVPUSH SCH (09:27)
[2022-04-21] MEDS: FAMOTIDINE 40 MG/5 ML ORAL SUSPENSION GT SCH ×2 (09:28→21:27)
[2022-04-21] MEDS: MULTIVIT-MINERALS ORAL LIQUID GT SCH (09:28)
[2022-04-21] MEDS: METOPROLOL TARTRATE 50 MG TABLET (FP) GT SCH ×2 (09:28→21:28)
[2022-04-21] MEDS: ASCORBIC ACID 500 MG TABLET (FP) GT SCH ×2 (09:28→21:26)
[2022-04-21] MEDS: ENOXAPARIN NA (PORCINE) 40 MG/0.4 ML DISP.SYRIN SQ SCH (09:51)
[2022-04-21] MEDS: LEVOTHYROXINE NA 150 MCG TABLET GT SCH (17:40)
[2022-04-21] MEDS: QUEtiapine FUMARATE 25 MG TABLET GT SCH (21:26)
[2022-04-22] MEDS: VANCOMYCIN 250 MG/5 ML ORAL SOLUTION PO SCH ×4 (00:15→17:38)
[2022-04-22] MEDS: ZINC SULFATE 220 MG CAPSULE (FP) GT SCH (06:53)
[2022-04-22] MEDS: ZINC OXIDE 20% TOPICAL OINTMENT 30 GM TUBE TP SCH ×3 (06:54→22:02)
[2022-04-22] MEDS: AMINO ACIDS/PROTEIN HYDROLYS 30 ML LIQUID.PKT GT SCH ×2 (08:50→17:38)
[2022-04-22] MEDS: MULTIVIT-MINERALS ORAL LIQUID GT SCH (09:36)
[2022-04-22] MEDS: PANTOPRAZOLE SODIUM 40 MG VIAL IVPUSH SCH (09:36)
[2022-04-22] MEDS: FAMOTIDINE 40 MG/5 ML ORAL SUSPENSION GT SCH ×2 (09:36→22:02)
[2022-04-22] MEDS: METOPROLOL TARTRATE 50 MG TABLET (FP) GT SCH ×2 (09:37→22:01)
[2022-04-22] MEDS: LACTOBACILLUS ACIDOPHILUS 1 TABLET GT SCH (09:37)
[2022-04-22] MEDS: ASCORBIC ACID 500 MG TABLET (FP) GT SCH ×2 (09:37→22:02)
[2022-04-22] MEDS: ENOXAPARIN NA (PORCINE) 40 MG/0.4 ML DISP.SYRIN SQ SCH (09:37)
[2022-04-22 10:34] LABS: BASO % 0.5 % (0-2.0); EOS % 4.6 % (0-4.5); HEMATOCRIT 28.9 % (35.4-49); HEMOGLOBIN 9.8 GM/dL (11.7-16.9); LYMPH % 10.6 % (8-40); MCH 31.8 pg (25.7-33.7); MCHC 33.8 g/dl (32.0-35.9); MEAN PLT VOLUME 7.9 fl (7.5-11.1); MONO % 6.5 % (3.8-10.2); NEUT % 77.8 % (42.8-82.8); PLATELET COUNT 392 10^3/uL (134-434); RBC 3.08 M/mm3 (4.00-5.60); RDW 14.8 % (11.9-15.9)
[2022-04-22 10:52] LABS: ALBUMIN 1.9 g/dl (3.4-5.0)
[2022-04-22 10:53] LABS: BLOOD UREA NITROGEN 30.3 mg/dL (7-18)
[2022-04-22 10:55] LABS: CREATININE 0.3 mg/dL (0.55-1.3)
[2022-04-22 10:57] LABS: BILIRUBIN,TOTAL 0.3 mg/dL (0.2-1); TOT PROT 5.9 g/dl (6.4-8.2)
[2022-04-22] MEDS: INSULIN SLIDING SCALE (NOVOLOG) 1 VIAL SQ SCH ×4 (11:03→23:31)
[2022-04-22] MEDS: NYSTATIN POWDER 100,000 UNITS/GM - 15 GM TOPICAL POWDER TP SCH ×2 (13:39→22:02)
[2022-04-22] MEDS: SCOPOLAMINE HYDROBROMIDE 1 PATCH PATCH.TD72 TD SCH (15:03)
[2022-04-22] MEDS: LEVOTHYROXINE NA 150 MCG TABLET GT SCH (17:38)
[2022-04-22] MEDS: QUEtiapine FUMARATE 25 MG TABLET GT SCH (22:02)
[2022-04-22] MEDS ORDERED: DEXTROSE 50%-WATER 25 GM/50 ML DISP.SYRIN IVPUSH ONE (22:28)
[2022-04-22] MEDS ORDERED: DEXTROSE 50%-WATER 25 GM/50 ML DISP.SYRIN ONE (22:34)
[2022-04-23] MEDS: VANCOMYCIN 250 MG/5 ML ORAL SOLUTION PO SCH ×4 (00:06→17:12)
[2022-04-23] MEDS: ZINC SULFATE 220 MG CAPSULE (FP) GT SCH (06:02)
[2022-04-23] MEDS: ZINC OXIDE 20% TOPICAL OINTMENT 30 GM TUBE TP SCH ×3 (06:03→21:57)
[2022-04-23] MEDS: INSULIN SLIDING SCALE (NOVOLOG) 1 VIAL SQ SCH ×4 (06:03→21:52)
[2022-04-23] MEDS: AMINO ACIDS/PROTEIN HYDROLYS 30 ML LIQUID.PKT GT SCH ×2 (08:39→17:12)
[2022-04-23] MEDS: NYSTATIN POWDER 100,000 UNITS/GM - 15 GM TOPICAL POWDER TP SCH ×2 (09:57→10:06)
[2022-04-23] MEDS: ASCORBIC ACID 500 MG TABLET (FP) GT SCH ×2 (10:04→21:52)
[2022-04-23] MEDS: PANTOPRAZOLE SODIUM 40 MG VIAL IVPUSH SCH (10:05)
[2022-04-23] MEDS: MULTIVIT-MINERALS ORAL LIQUID GT SCH (10:05)
[2022-04-23] MEDS: ENOXAPARIN NA (PORCINE) 40 MG/0.4 ML DISP.SYRIN SQ SCH (10:05)
[2022-04-23] MEDS: LACTOBACILLUS ACIDOPHILUS 1 TABLET GT SCH (10:05)
[2022-04-23] MEDS: METOPROLOL TARTRATE 50 MG TABLET (FP) GT SCH ×2 (10:05→21:52)
[2022-04-23] MEDS: FAMOTIDINE 40 MG/5 ML ORAL SUSPENSION GT SCH ×2 (10:05→21:52)
[2022-04-23] MEDS: LEVOTHYROXINE NA 150 MCG TABLET GT SCH (17:12)
[2022-04-23] MEDS: QUEtiapine FUMARATE 25 MG TABLET GT SCH (21:52)
[2022-04-24] MEDS: VANCOMYCIN 250 MG/5 ML ORAL SOLUTION PO SCH ×4 (00:51→17:55)
[2022-04-24] MEDS: ZINC OXIDE 20% TOPICAL OINTMENT 30 GM TUBE TP SCH ×3 (05:57→21:22)
[2022-04-24] MEDS: INSULIN SLIDING SCALE (NOVOLOG) 1 VIAL SQ SCH ×4 (06:04→21:22)
[2022-04-24] MEDS: ZINC SULFATE 220 MG CAPSULE (FP) GT SCH (06:21)
[2022-04-24] MEDS: AMINO ACIDS/PROTEIN HYDROLYS 30 ML LIQUID.PKT GT SCH ×2 (08:25→17:51)
[2022-04-24 10:25] LABS: CALCIUM 8.4 mg/dL (8.5-10.1)
[2022-04-24 10:26] LABS: BLOOD UREA NITROGEN 32.5 mg/dL (7-18)
[2022-04-24 10:28] LABS: CREATININE 0.4 mg/dL (0.55-1.3)
[2022-04-24 10:29] LABS: ALBUMIN 1.9 g/dl (3.4-5.0); BILIRUBIN,TOTAL 0.2 mg/dL (0.2-1)
[2022-04-24 10:30] LABS: TOT PROT 5.7 g/dl (6.4-8.2)
[2022-04-24] MEDS: MULTIVIT-MINERALS ORAL LIQUID GT SCH (10:59)
[2022-04-24] MEDS: ASCORBIC ACID 500 MG TABLET (FP) GT SCH ×2 (11:02→21:21)
[2022-04-24] MEDS: METOPROLOL TARTRATE 50 MG TABLET (FP) GT SCH ×2 (11:02→21:21)
[2022-04-24] MEDS: LACTOBACILLUS ACIDOPHILUS 1 TABLET GT SCH (11:03)
[2022-04-24] MEDS: ENOXAPARIN NA (PORCINE) 40 MG/0.4 ML DISP.SYRIN SQ SCH (11:03)
[2022-04-24] MEDS: PANTOPRAZOLE SODIUM 40 MG VIAL IVPUSH SCH (11:04)
[2022-04-24] MEDS: FAMOTIDINE 40 MG/5 ML ORAL SUSPENSION GT SCH ×2 (11:04→21:22)
[2022-04-24] MEDS: NYSTATIN POWDER 100,000 UNITS/GM - 15 GM TOPICAL POWDER TP SCH ×2 (11:05→21:22)
[2022-04-24] MEDS: SODIUM ZIRCONIUM CYCLOSILICATE (LOKELMA) 5 GM PACKET PO SCH (15:44)
[2022-04-24] MEDS: LEVOTHYROXINE NA 150 MCG TABLET GT SCH (17:51)
[2022-04-24] MEDS: QUEtiapine FUMARATE 25 MG TABLET GT SCH (21:21)
[2022-04-25] MEDS: VANCOMYCIN 250 MG/5 ML ORAL SOLUTION PO SCH (01:02)
[2022-04-25] MEDS: ZINC OXIDE 20% TOPICAL OINTMENT 30 GM TUBE TP SCH ×2 (06:05→14:00)
[2022-04-25] MEDS: ZINC SULFATE 220 MG CAPSULE (FP) GT SCH (06:05)
[2022-04-25] MEDS: INSULIN SLIDING SCALE (NOVOLOG) 1 VIAL SQ SCH ×2 (06:25→12:22)
[2022-04-25] MEDS: PANTOPRAZOLE SODIUM 40 MG VIAL IVPUSH SCH (08:59)
[2022-04-25] MEDS: SODIUM ZIRCONIUM CYCLOSILICATE (LOKELMA) 5 GM PACKET PO SCH (09:07)
[2022-04-25] MEDS: FAMOTIDINE 40 MG/5 ML ORAL SUSPENSION GT SCH (10:51)
[2022-04-25] MEDS: LACTOBACILLUS ACIDOPHILUS 1 TABLET GT SCH (10:51)
[2022-04-25] MEDS: ASCORBIC ACID 500 MG TABLET (FP) GT SCH (10:51)
[2022-04-25] MEDS: METOPROLOL TARTRATE 50 MG TABLET (FP) GT SCH (10:51)
[2022-04-25] MEDS: MULTIVIT-MINERALS ORAL LIQUID GT SCH (10:51)
[2022-04-25] MEDS: AMINO ACIDS/PROTEIN HYDROLYS 30 ML LIQUID.PKT GT SCH (10:52)
[2022-04-25] MEDS: ENOXAPARIN NA (PORCINE) 40 MG/0.4 ML DISP.SYRIN SQ SCH (10:53)
[2022-04-25] MEDS: NYSTATIN POWDER 100,000 UNITS/GM - 15 GM TOPICAL POWDER TP SCH (11:00)
[2022-04-25 11:39] LABS: BLOOD UREA NITROGEN 34.8 mg/dL (7-18); CALCIUM 8.5 mg/dL (8.5-10.1)
[2022-04-25 11:40] LABS: BILIRUBIN,TOTAL 0.3 mg/dL (0.2-1); TOT PROT 5.9 g/dl (6.4-8.2)
[2022-04-25 11:42] LABS: CREATININE 0.4 mg/dL (0.55-1.3)
[2022-04-25 14:12] VITALS: BP 141/68; PULSE 65; RESP 18; TEMP 97.9
[2022-04-25] MEDS: SCOPOLAMINE HYDROBROMIDE 1 PATCH PATCH.TD72 TD SCH (15:20)
[2022-04-26] MEDS ORDERED: KETOCONAZOLE 2 % SHAMPOO 120 ML BOTTLE TP SCH (10:00)
== END 2022-04-25 17:05 | DRG 870 ==
LOC: JER 13:09 → JERBED 17:05 → JICU 23:03 → J5S 04-18 00:45
PROVIDERS: ADMIT Internal Medicine Pulmonary Disease; ATTEND Family Medicine
PROC: 5A1955Z Respiratory Ventilation, Greater than 96 Consecutive Hours (ICD-10-PCS; principal; 2022-04-12)
PROC: 05HF33Z Insertion of Infusion Device into Left Cephalic Vein, Percutaneous Approach (ICD-10-PCS; 2022-04-13)
PROC: B54NZZA Ultrasonography of Left Upper Extremity Veins, Guidance (ICD-10-PCS; 2022-04-13)
PROC: 0D20XUZ Change Feeding Device in Upper Intestinal Tract, External Approach (ICD-10-PCS; 2022-04-17)
DX: A41.9 Sepsis, unspecified organism (principal); R65.21 Severe sepsis with septic shock; E87.1 Hypo-osmolality and hyponatremia; J96.11 Chronic respiratory failure with hypoxia; A04.72 Enterocolitis due to Clostridium difficile, not specified as recurrent; Z99.11 Dependence on respirator [ventilator] status; Z43.1 Encounter for attention to gastrostomy; J44.9 Chronic obstructive pulmonary disease, unspecified; Z86.16 Personal history of COVID-19; I11.0 Hypertensive heart disease with heart failure; I50.9 Heart failure, unspecified; Z86.74 Personal history of sudden cardiac arrest; Z93.0 Tracheostomy status; R13.10 Dysphagia, unspecified; E03.9 Hypothyroidism, unspecified; E87.5 Hyperkalemia; D64.9 Anemia, unspecified; F20.9 Schizophrenia, unspecified; I27.20 Pulmonary hypertension, unspecified; I35.0 Nonrheumatic aortic (valve) stenosis
CPT/HCPCS: 0241U-QW; 36415; 36430; 71045-TC-FY; 74018-TC-FY; 80048; 80053; 81003; 82607; 82728; 82746; 82803; 82962; 82977; 83540; 83550; 83605; 83735; 84100; 84443; 84484; 85025; 85027; 85610; 85730; 86140; 86850; 86900; 86901; 86922; 87040; 87070; 87086; 87184; 87186; 87205; 87324; 87449; 87899; 93005; 93010; 93306-TC; 94002; 99291; C9803-CS; J1644; J1756; P9058; U0003; U0005

== ENCOUNTER 2022-05-01 15:15 | Inpatient (IN) | payer OTHER ==
[2022-05-01 15:31] VITALS: BMI 18.5
[2022-05-01 17:13] LABS: BASO % 1.2 % (0-2.0); EOS % 4.8 % (0-4.5); HEMOGLOBIN 9.5 GM/dL (11.7-16.9); LYMPH % 10.9 % (8-40); MCH 31.8 pg (25.7-33.7); MEAN CELL VOLUME 93.3 fl (80-96); MEAN PLT VOLUME 8.5 fl (7.5-11.1); MONO % 10.3 % (3.8-10.2); NEUT % 72.8 % (42.8-82.8); PLATELET COUNT 457 10^3/uL (134-434); RDW 15.6 % (11.9-15.9); WHITE BLOOD COUNT 10.1 K/mm3 (4.0-10.0)
[2022-05-01 17:16] LABS: VENOUS BASE EXCESS 7.5 mmol/L (-2-2); VENOUS PCO2 55.3 mmHg (38-52); VENOUS PH 7.401 (7.310-7.410)
[2022-05-01 17:17] LABS: EPI CELLS 4 /uL (0-25.1); HYALINE CASTS 0 /uL (0-3.1); URINE APPEARANCE CLEAR; URINE BACTERIA 3 /uL (0-1359); URINE BILIRUBIN NEGATIVE (NEGATIVE); URINE COLOR YELLOW; URINE GLUCOSE (UA) NEGATIVE (NEGATIVE); URINE KETONE NEGATIVE (NEGATIVE); URINE LEUK ESTERASE TRACE (NEGATIVE); URINE NITRITE NEGATIVE (NEGATIVE); URINE PROTEIN 1+ (NEGATIVE); URINE RBC 17 /uL (0-23.9); URINE UROBILINOGEN 0.2 mg/dL (0.2-1.0); URINE WBC 26 /uL (0-25.8)
[2022-05-01 17:21] LABS: INR 1.1 (0.83-1.09); PROTHROMBIN TIME (PATIENT) 12.8 SEC (9.7-13.0)
[2022-05-01 17:23] LABS: ACTIVATED PTT 40.8 SECONDS (25.2-36.5)
[2022-05-01 17:36] LABS: BLOOD UREA NITROGEN 38.1 mg/dL (7-18); CALCIUM 9.3 mg/dL (8.5-10.1)
[2022-05-01 17:37] LABS: ALBUMIN 2.3 g/dl (3.4-5.0)
[2022-05-01 17:40] LABS: CREATININE 0.5 mg/dL (0.55-1.3)
[2022-05-01 17:41] LABS: BILIRUBIN,TOTAL 0.3 mg/dL (0.2-1); TOT PROT 6.8 g/dl (6.4-8.2)
[2022-05-01] MEDS ORDERED: SODIUM ZIRCONIUM CYCLOSILICATE (LOKELMA) 5 GM PACKET GT ONE (18:25)
[2022-05-01] MEDS ORDERED: SODIUM ZIRCONIUM CYCLOSILICATE (LOKELMA) 5 GM PACKET ONE (18:37)
[2022-05-02 07:29] LABS: EOS % 0.4 % (0-4.5); HEMATOCRIT 29.8 % (35.4-49); HEMOGLOBIN 9.9 GM/dL (11.7-16.9); LYMPH % 6.3 % (8-40); MCH 31.1 pg (25.7-33.7); MCHC 33.4 g/dl (32.0-35.9); MEAN CELL VOLUME 93.2 fl (80-96); MEAN PLT VOLUME 8.7 fl (7.5-11.1); MONO % 11.9 % (3.8-10.2); NEUT % 80.4 % (42.8-82.8); PLATELET COUNT 526 10^3/uL (134-434); RBC 3.19 M/mm3 (4.00-5.60); RDW 15.1 % (11.9-15.9); WHITE BLOOD COUNT 18.3 K/mm3 (4.0-10.0)
[2022-05-02 09:17] LABS: CALCIUM 9.7 mg/dL (8.5-10.1)
[2022-05-02 09:19] LABS: MAGNESIUM 1.8 mg/dL (1.8-2.4)
[2022-05-02 09:21] LABS: CREATININE 0.5 mg/dL (0.55-1.3)
[2022-05-02] MEDS ORDERED: SCOPOLAMINE HYDROBROMIDE 1 PATCH PATCH.TD72 TD SCH (11:00)
[2022-05-02] MEDS ORDERED: ACETAMINOPHEN 650 MG/20.3 ML ORAL SOLUTION (CUPS) ONE (11:42)
[2022-05-02] MEDS: INSULIN SLIDING SCALE (NOVOLOG) 1 VIAL SQ SCH ×3 (11:54→22:41)
[2022-05-02] MEDS: ACETAMINOPHEN 650 MG/20.3 ML ORAL SOLUTION (CUPS) GT PRN (11:54)
[2022-05-02] MEDS: VANCOMYCIN 250 MG/5 ML ORAL SOLUTION GT SCH ×2 (11:55→18:09)
[2022-05-02] MEDS: SODIUM CHLORIDE 1,000 ML IV SCH (14:45)
[2022-05-02] MEDS: SODIUM ZIRCONIUM CYCLOSILICATE (LOKELMA) 5 GM PACKET PO SCH ×2 (16:10→21:08)
[2022-05-02] MEDS ORDERED: SODIUM ZIRCONIUM CYCLOSILICATE (LOKELMA) 5 GM PACKET ONE (16:11)
[2022-05-02] MEDS: AMINO ACIDS/PROTEIN HYDROLYS 30 ML LIQUID.PKT GT SCH (18:09)
[2022-05-02] MEDS ORDERED: INSULIN (NOVOLOG) ASPART 100 UNITS/ML 10ML VIAL ONE (18:10)
[2022-05-02] MEDS: METOPROLOL TARTRATE 50 MG TABLET (FP) GT SCH (21:08)
[2022-05-02] MEDS: QUEtiapine FUMARATE 25 MG TABLET GT SCH (21:08)
[2022-05-02] MEDS: FAMOTIDINE 40 MG/5 ML ORAL SUSPENSION GT SCH (22:26)
[2022-05-03] MEDS: VANCOMYCIN 250 MG/5 ML ORAL SOLUTION GT SCH ×5 (00:05→23:57)
[2022-05-03] MEDS: INSULIN SLIDING SCALE (NOVOLOG) 1 VIAL SQ SCH ×4 (06:01→22:43)
[2022-05-03] MEDS: SODIUM CHLORIDE 1,000 ML IV SCH ×3 (06:13→20:33)
[2022-05-03 09:55] LABS: BASO % 1.1 % (0-2.0); EOS % 2.1 % (0-4.5); HEMATOCRIT 26.7 % (35.4-49); HEMOGLOBIN 9.1 GM/dL (11.7-16.9); LYMPH % 9.6 % (8-40); MCH 31.6 pg (25.7-33.7); MCHC 34.1 g/dl (32.0-35.9); MEAN CELL VOLUME 92.7 fl (80-96); MEAN PLT VOLUME 7.9 fl (7.5-11.1); MONO % 12.8 % (3.8-10.2); NEUT % 74.4 % (42.8-82.8); PLATELET COUNT 410 10^3/uL (134-434); RBC 2.88 M/mm3 (4.00-5.60); WHITE BLOOD COUNT 12.2 K/mm3 (4.0-10.0)
[2022-05-03 10:34] LABS: BLOOD UREA NITROGEN 52.4 mg/dL (7-18); CALCIUM 8.9 mg/dL (8.5-10.1)
[2022-05-03 10:35] LABS: ALBUMIN 2.1 g/dl (3.4-5.0)
[2022-05-03 10:37] LABS: BILIRUBIN,TOTAL 0.4 mg/dL (0.2-1); CREATININE 0.8 mg/dL (0.55-1.3); TOT PROT 6.3 g/dl (6.4-8.2)
[2022-05-03] MEDS: AMINO ACIDS/PROTEIN HYDROLYS 30 ML LIQUID.PKT GT SCH ×2 (11:10→16:34)
[2022-05-03] MEDS: ENOXAPARIN NA (PORCINE) 40 MG/0.4 ML DISP.SYRIN SQ SCH (11:11)
[2022-05-03] MEDS: LACTOBACILLUS ACIDOPHILUS 1 TABLET GT SCH (11:11)
[2022-05-03] MEDS: METOPROLOL TARTRATE 50 MG TABLET (FP) GT SCH ×2 (11:11→22:03)
[2022-05-03] MEDS: SODIUM ZIRCONIUM CYCLOSILICATE (LOKELMA) 5 GM PACKET PO SCH ×2 (11:11→22:04)
[2022-05-03] MEDS: FAMOTIDINE 40 MG/5 ML ORAL SUSPENSION GT SCH ×2 (11:14→22:06)
[2022-05-03] MEDS: ACETAMINOPHEN 650 MG/20.3 ML ORAL SOLUTION (CUPS) GT PRN (16:34)
[2022-05-03] MEDS: QUEtiapine FUMARATE 25 MG TABLET GT SCH (22:04)
[2022-05-04] MEDS: VANCOMYCIN 250 MG/5 ML ORAL SOLUTION GT SCH ×3 (06:27→17:42)
[2022-05-04] MEDS: INSULIN SLIDING SCALE (NOVOLOG) 1 VIAL SQ SCH ×3 (06:27→17:49)
[2022-05-04 09:16] LABS: BILIRUBIN,TOTAL 0.2 mg/dL (0.2-1); BLOOD UREA NITROGEN 51.5 mg/dL (7-18)
[2022-05-04 09:20] LABS: CREATININE 0.6 mg/dL (0.55-1.3)
[2022-05-04] MEDS: AMINO ACIDS/PROTEIN HYDROLYS 30 ML LIQUID.PKT GT SCH ×2 (09:51→17:42)
[2022-05-04] MEDS: LACTOBACILLUS ACIDOPHILUS 1 TABLET GT SCH (09:52)
[2022-05-04] MEDS: METOPROLOL TARTRATE 50 MG TABLET (FP) GT SCH (09:52)
[2022-05-04] MEDS: ENOXAPARIN NA (PORCINE) 40 MG/0.4 ML DISP.SYRIN SQ SCH (09:52)
[2022-05-04] MEDS: SODIUM ZIRCONIUM CYCLOSILICATE (LOKELMA) 5 GM PACKET PO SCH (09:52)
[2022-05-04] MEDS: FAMOTIDINE 40 MG/5 ML ORAL SUSPENSION GT SCH (09:53)
[2022-05-04] MEDS: SODIUM CHLORIDE 1,000 ML IV SCH (17:35)
[2022-05-04 20:11] VITALS: BP 173/91; PULSE 78; RESP 22; TEMP 98.9
== END 2022-05-04 20:21 | DRG 641 ==
LOC: JER 15:15 → JERBED 20:20 → J5S 05-02 18:32 → OBSVTOIN 05-03 09:10
PROVIDERS: ADMIT Internal Medicine; ATTEND Family Medicine
PROC: 5A1945Z Respiratory Ventilation, 24-96 Consecutive Hours (ICD-10-PCS; principal; 2022-05-01)
DX: E87.1 Hypo-osmolality and hyponatremia (principal); J96.11 Chronic respiratory failure with hypoxia; R64 Cachexia; Z68.1 Body mass index [BMI] 19.9 or less, adult; J90 Pleural effusion, not elsewhere classified; Z99.11 Dependence on respirator [ventilator] status; J44.9 Chronic obstructive pulmonary disease, unspecified; E03.9 Hypothyroidism, unspecified; Z86.74 Personal history of sudden cardiac arrest; E87.5 Hyperkalemia; I48.91 Unspecified atrial fibrillation; E86.1 Hypovolemia; Z93.0 Tracheostomy status; D64.9 Anemia, unspecified; R00.0 Tachycardia, unspecified; Z93.1 Gastrostomy status; I35.0 Nonrheumatic aortic (valve) stenosis; K52.9 Noninfective gastroenteritis and colitis, unspecified; I25.10 Atherosclerotic heart disease of native coronary artery without angina pectoris
CPT/HCPCS: 0241U-QW; 36415; 71045-TC-FY; 80048; 80053; 81003; 82533; 82550; 82553; 82607; 82728; 82803; 82962; 83540; 83550; 83605; 83735; 84443; 84484; 85025; 85610; 85730; 86850; 86900; 86901; 87040; 87086; 93005; 93010; 94002; 99285-25; C9803-CS; G0378; U0003; U0005

== ENCOUNTER 2022-06-03 07:50 | Inpatient (IN) | payer OTHER ==
[2022-06-03] MEDS ORDERED: VANCOMYCIN 1 GM in D5W (PRE-DOCKED) 1,000 MG/250 ML IVPB ONE (08:34)
[2022-06-03] MEDS ORDERED: PIPERACILLIN/TAZOB 4.5 GM 4.5 GM in DEXTROSE 5%-WATER 100 ML IVPB ONE (08:34)
[2022-06-03] MEDS ORDERED: SODIUM CHLORIDE 0.9% 500 ML INFUS.BAG IV ONE (08:35)
[2022-06-03] MEDS ORDERED: VANCOMYCIN/WATER FOR INJ (PEG) 1,000 MG/200 ML BAG IVPB ONE (08:47)
[2022-06-03] MEDS ORDERED: PIPERACILLIN/TAZOB 4.5 GM 4.5 GM/100 ML BAG IVPB ONE (08:47)
[2022-06-03 09:11] LABS: BASO % 0.8 % (0-2.0); EOS % 4.6 % (0-4.5); HEMATOCRIT 28.1 % (35.4-49); HEMOGLOBIN 9.1 GM/dL (11.7-16.9); LYMPH % 11.5 % (8-40); MCH 31.3 pg (25.7-33.7); MCHC 32.3 g/dl (32.0-35.9); MEAN CELL VOLUME 96.9 fl (80-96); MEAN PLT VOLUME 8.7 fl (7.5-11.1); MONO % 7.6 % (3.8-10.2); NEUT % 75.5 % (42.8-82.8); PLATELET COUNT 378 10^3/uL (134-434); RDW 15.4 % (11.9-15.9); WHITE BLOOD COUNT 19.6 K/mm3 (4.0-10.0)
[2022-06-03 09:13] LABS: VENOUS BASE EXCESS -1.2 mmol/L (-2-2); VENOUS O2 SATURATION 40.2 % (70-80)
[2022-06-03 09:17] LABS: INR 1.24 (0.83-1.09); PROTHROMBIN TIME (PATIENT) 14.3 SEC (9.7-13.0)
[2022-06-03 09:20] LABS: ACTIVATED PTT 47.5 SECONDS (25.2-36.5)
[2022-06-03 09:25] LABS: VENOUS PH 7.197 (7.310-7.410)
[2022-06-03 09:26] LABS: VENOUS PCO2 74.8 mmHg (38-52)
[2022-06-03 09:27] LABS: CHLORIDE 111 mmol/L (98-107); SODIUM 145 mmol/L (136-145)
[2022-06-03 09:30] LABS: ALBUMIN 2.1 g/dl (3.4-5.0); CO2 30 mmol/L (21-32); GLUCOSE,RANDOM 125 mg/dL (74-106)
[2022-06-03 09:33] LABS: CREATININE 1.5 mg/dL (0.55-1.3); SGOT/AST 89 U/L (15-37); SGPT/ALT 104 U/L (13-61)
[2022-06-03 09:34] LABS: TOT PROT 7.3 g/dl (6.4-8.2)
[2022-06-03 09:35] LABS: BILIRUBIN,TOTAL 0.3 mg/dL (0.2-1)
[2022-06-03 09:36] LABS: ALK PHOS 176 U/L (45-117)
[2022-06-03 09:38] LABS: N-TERMINAL BNP 2660.4 pg/ml (5-125)
[2022-06-03 09:45] LABS: ANION GAP 4 MMOL/L (8-16); BLOOD UREA NITROGEN 113.5 mg/dL (7-18)
[2022-06-03] MEDS ORDERED: SODIUM CHLORIDE 0.9% 1000 ML INFUS.BAG IV ONE (09:47)
[2022-06-03] MEDS ORDERED: DEXTROSE 50%-WATER - 25 GM/50 ML VIAL IVPUSH ONE ×8 (09:48→22:10)
[2022-06-03] MEDS ORDERED: CALCIUM GLUCONATE 10% - 1,000 MG/10 ML VIAL IVPUSH ONE (09:48)
[2022-06-03] MEDS ORDERED: INSULIN REGULAR HUMAN 100 UNITS/ML *VIAL IVPUSH ONE ×5 (09:49→21:52)
[2022-06-03] MEDS ORDERED: DEXTROSE 50%-WATER 25 GM/50 ML DISP.SYRIN ONE ×7 (09:54→23:31)
[2022-06-03] MEDS ORDERED: SODIUM ZIRCONIUM CYCLOSILICATE (LOKELMA) 5 GM PACKET ONE ×2 (09:54→13:15)
[2022-06-03] MEDS ORDERED: ALBUTEROL SO4 0.083% IH SOL 2.5 MG/3 ML VIAL.NEB. NEB ONE (09:54)
[2022-06-03] MEDS ORDERED: CALCIUM GLUC IN NACL, ISO-OSM 1 GM/50 ML BAG IVPB ONE ×3 (09:54→17:32)
[2022-06-03] MEDS: ALBUTEROL SO4 0.083% IH SOL 2.5 MG/3 ML VIAL.NEB. NEB SCH ×3 (10:00→10:28)
[2022-06-03] MEDS: SODIUM ZIRCONIUM CYCLOSILICATE (LOKELMA) 5 GM PACKET PO SCH (10:27)
[2022-06-03 11:25] LABS: CHLORIDE 114 mmol/L (98-107); SODIUM 146 mmol/L (136-145)
[2022-06-03 11:26] LABS: CALCIUM 8.6 mg/dL (8.5-10.1); CO2 27 mmol/L (21-32); GLUCOSE,RANDOM 84 mg/dL (74-106)
[2022-06-03 11:30] LABS: CREATININE 1.4 mg/dL (0.55-1.3)
[2022-06-03 11:51] LABS: ANION GAP 5 MMOL/L (8-16); BLOOD UREA NITROGEN 109.7 mg/dL (7-18)
[2022-06-03] MEDS ORDERED: CALCIUM GLUCONATE 10% - 1,000 MG/10 ML VIAL IVPB ONE (11:57)
[2022-06-03 12:09] LABS: ARTERIAL BLD GAS O2 SATURATION 95.8 % (95-98); ARTERIAL BLOOD GAS BASE EXCESS -1.9 mmol/L (-2-2); ARTERIAL BLOOD GAS PO2 92.6 mmHg (80-100); ARTERIAL BLOOD GAS pH 7.257 (7.350-7.450)
[2022-06-03 12:10] LABS: ALLENS TEST POSITIVE
[2022-06-03] MEDS: DEXTROSE 5%-0.45% SALINE 1,000 ML IV SCH ×2 (12:30→19:00)
[2022-06-03] MEDS ORDERED: SCOPOLAMINE HYDROBROMIDE 1 PATCH PATCH.TD72 TD SCH (12:30)
[2022-06-03] MEDS: SODIUM ZIRCONIUM CYCLOSILICATE (LOKELMA) 5 GM PACKET GT SCH (13:25)
[2022-06-03] MEDS ORDERED: FAMOTIDINE 20 MG TABLET ONE (15:16)
[2022-06-03] MEDS: FAMOTIDINE 20 MG TABLET NGT SCH (15:19)
[2022-06-03] MEDS: INSULIN SLIDING SCALE (NOVOLOG) 1 VIAL SQ SCH ×2 (15:39→22:26)
[2022-06-03] MEDS ORDERED: INSULIN SLIDING SCALE (NOVOLOG) 1 VIAL SQ SCH (16:30)
[2022-06-03 17:20] LABS: URINE APPEARANCE CLOUDY; URINE BILIRUBIN NEGATIVE (NEGATIVE); URINE COLOR YELLOW; URINE GLUCOSE (UA) NEGATIVE (NEGATIVE); URINE KETONE NEGATIVE (NEGATIVE)
[2022-06-03 17:21] LABS: EPI CELLS 19.7 /uL (0-25.1); HYALINE CASTS 2.6 /uL (0-3.1); URINE BACTERIA 1.9 /uL (0-1359); URINE LEUK ESTERASE N (NEGATIVE); URINE NITRITE NEGATIVE (NEGATIVE); URINE PROTEIN 1+ (NEGATIVE); URINE RBC 6.6 /uL (0-23.9); URINE UROBILINOGEN 0.2 mg/dL (0.2-1.0); URINE WBC 32.2 /uL (0-25.8)
[2022-06-03] MEDS ORDERED: PIPERACILLIN/TAZOB 3.375 GM 3.375 GM in DEXTROSE 5%-WATER - 50 ML IVPB SCH (18:00)
[2022-06-03] MEDS ORDERED: DEXTROSE 50%-WATER 25 GM/50 ML DISP.SYRIN IVPUSH ONE ×2 (18:05→22:00)
[2022-06-03] MEDS: PIPERACILLIN/TAZOB 3.375 GM 3.375 GM in DEXTROSE 5%-WATER - 50 ML IVPB SCH (18:15)
[2022-06-03] MEDS ORDERED: SODIUM CHLORIDE 500 ML IV STA ×2 (18:33→22:19)
[2022-06-03 20:07] LABS: ARTERIAL BLD GAS O2 SATURATION 96.9 % (95-98); ARTERIAL BLOOD GAS PO2 108.5 mmHg (80-100); ARTERIAL BLOOD GAS pH 7.224 (7.350-7.450)
[2022-06-03 20:13] LABS: ALLENS TEST POSITIVE
[2022-06-03 20:14] LABS: VENT MODE A/C; VENT RATE 24
[2022-06-03] MEDS ORDERED: CALCIUM GLUCONATE IN NACL 1 GM/50 ML BAG IVPB ONE (21:42)
[2022-06-03] MEDS ORDERED: FAMOTIDINE 20 MG TABLET NGT SCH (22:00)
[2022-06-03] MEDS: HEPARIN NA (PORCINE) 5,000 UNITS/ML 1ML VIAL SQ SCH (22:25)
[2022-06-03] MEDS: METOPROLOL TARTRATE 50 MG TABLET (FP) GT SCH (22:26)
[2022-06-03] MEDS: NYSTATIN POWDER 100,000 UNITS/GM - 15 GM TOPICAL POWDER TP SCH (22:26)
[2022-06-03] MEDS: ASCORBIC ACID 500 MG/5 ML UNIT DOSE CUP GT SCH (22:26)
[2022-06-03] MEDS ORDERED: SODIUM ZIRCONIUM CYCLOSILICATE (LOKELMA) 5 GM PACKET GT ONE (22:45)
[2022-06-04] MEDS ORDERED: DEXTROSE 50%-WATER 25 GM/50 ML DISP.SYRIN ONE (01:29)
[2022-06-04] MEDS ORDERED: DEXTROSE 50%-WATER - 25 GM/50 ML VIAL IVPUSH ONE ×4 (01:34→01:36)
[2022-06-04] MEDS: DEXTROSE 5%-0.45% SALINE 1,000 ML IV SCH ×3 (02:27→11:34)
[2022-06-04] MEDS: PIPERACILLIN/TAZOB 3.375 GM 3.375 GM in DEXTROSE 5%-WATER - 50 ML IVPB SCH ×3 (02:28→18:41)
[2022-06-04] MEDS: INSULIN SLIDING SCALE (NOVOLOG) 1 VIAL SQ SCH ×4 (06:35→21:29)
[2022-06-04] MEDS: LEVOTHYROXINE NA 150 MCG TABLET GT SCH (06:35)
[2022-06-04 08:59] LABS: BASO % 1.2 % (0-2.0); EOS % 4.2 % (0-4.5); HEMATOCRIT 23.9 % (35.4-49); HEMOGLOBIN 7.7 GM/dL (11.7-16.9); LYMPH % 12.6 % (8-40); MCH 31.4 pg (25.7-33.7); MCHC 32.4 g/dl (32.0-35.9); MEAN CELL VOLUME 96.9 fl (80-96); MEAN PLT VOLUME 9.1 fl (7.5-11.1); MONO % 7.6 % (3.8-10.2); NEUT % 74.4 % (42.8-82.8); PLATELET COUNT 243 10^3/uL (134-434); RBC 2.47 M/mm3 (4.00-5.60); WHITE BLOOD COUNT 12.7 K/mm3 (4.0-10.0)
[2022-06-04 09:19] LABS: CHLORIDE 111 mmol/L (98-107); SODIUM 140 mmol/L (136-145)
[2022-06-04] MEDS: SODIUM ZIRCONIUM CYCLOSILICATE (LOKELMA) 5 GM PACKET PO SCH (09:30)
[2022-06-04 09:40] LABS: CALCIUM 8.4 mg/dL (8.5-10.1)
[2022-06-04 09:41] LABS: CO2 23 mmol/L (21-32); GLUCOSE,RANDOM 92 mg/dL (74-106)
[2022-06-04 09:44] LABS: CREATININE 1.5 mg/dL (0.55-1.3)
[2022-06-04 09:53] LABS: ANION GAP 6 MMOL/L (8-16); BLOOD UREA NITROGEN 107.8 mg/dL (7-18)
[2022-06-04] MEDS: SODIUM ZIRCONIUM CYCLOSILICATE (LOKELMA) 5 GM PACKET GT SCH ×4 (10:03→21:06)
[2022-06-04] MEDS: HEPARIN NA (PORCINE) 5,000 UNITS/ML 1ML VIAL SQ SCH ×2 (10:03→21:07)
[2022-06-04] MEDS: ASCORBIC ACID 500 MG/5 ML UNIT DOSE CUP GT SCH ×2 (10:04→21:07)
[2022-06-04] MEDS: NYSTATIN POWDER 100,000 UNITS/GM - 15 GM TOPICAL POWDER TP SCH ×2 (10:04→21:07)
[2022-06-04] MEDS: METOPROLOL TARTRATE 50 MG TABLET (FP) GT SCH ×2 (10:04→21:07)
[2022-06-04] MEDS: FAMOTIDINE 20 MG TABLET NGT SCH (10:04)
[2022-06-04] MEDS ORDERED: ALBUTEROL SO4 0.083% IH SOL 2.5 MG/3 ML VIAL.NEB. NEB SCH (10:15)
[2022-06-04] MEDS ORDERED: SODIUM BICARBONATE 8.4% 50 MEQ/50 ML DISP.SYRIN IVPUSH ONE (11:10)
[2022-06-04] MEDS ORDERED: SODIUM CHLORIDE 1,000 ML IV STA (11:10)
[2022-06-04] MEDS ORDERED: FUROSEMIDE 40 MG/4 ML INJECTABLE VIAL IVPUSH ONE (12:00)
[2022-06-04] MEDS: ALBUTEROL SO4 0.083% IH SOL 2.5 MG/3 ML VIAL.NEB. NEB SCH ×2 (17:54→17:55)
[2022-06-04] MEDS ORDERED: DEXTROSE 50%-WATER - 25 GM/50 ML VIAL IVPUSH PRN (21:13)
[2022-06-04] MEDS ORDERED: DEXTROSE 5%-NORMAL SALINE 1,000 ML IV SCH (21:15)
[2022-06-04] MEDS ORDERED: SODIUM CHLORIDE 1,000 ML IV SCH (21:15)
[2022-06-04] MEDS ORDERED: ALBUTEROL SO4 2.5/IPRATROPIUM 0.5 INH SOL 3 ML VIAL.NEB. NEB PRN (21:16)
[2022-06-04] MEDS ORDERED: ALBUTEROL SO4 HFA INHALER IH PRN (21:18)
[2022-06-04 22:03] LABS: CHLORIDE 109 mmol/L (98-107); SODIUM 141 mmol/L (136-145)
[2022-06-04 22:05] LABS: ANION GAP 7 MMOL/L (8-16); CALCIUM 8.1 mg/dL (8.5-10.1); CO2 26 mmol/L (21-32); GLUCOSE,RANDOM 106 mg/dL (74-106)
[2022-06-04 22:09] LABS: CREATININE 1.7 mg/dL (0.55-1.3)
[2022-06-05] MEDS: PIPERACILLIN/TAZOB 3.375 GM 3.375 GM in DEXTROSE 5%-WATER - 50 ML IVPB SCH ×3 (01:41→18:12)
[2022-06-05] MEDS: INSULIN SLIDING SCALE (NOVOLOG) 1 VIAL SQ SCH ×4 (06:15→23:13)
[2022-06-05] MEDS: LEVOTHYROXINE NA 150 MCG TABLET GT SCH (06:15)
[2022-06-05] MEDS: SODIUM ZIRCONIUM CYCLOSILICATE (LOKELMA) 5 GM PACKET GT SCH (06:15)
[2022-06-05 07:32] LABS: CHLORIDE 106 mmol/L (98-107); SODIUM 138 mmol/L (136-145)
[2022-06-05 07:33] LABS: CALCIUM 7.8 mg/dL (8.5-10.1)
[2022-06-05 07:34] LABS: ANION GAP 8 MMOL/L (8-16); CO2 24 mmol/L (21-32); GLUCOSE,RANDOM 110 mg/dL (74-106); MAGNESIUM 2.1 mg/dL (1.8-2.4)
[2022-06-05 07:37] LABS: CREATININE 1.7 mg/dL (0.55-1.3); IRON SERUM 74 ug/dL (50-175); PHOSPHOROUS 8.2 mg/dL (2.5-4.9); SGOT/AST 52 U/L (15-37); SGPT/ALT 53 U/L (13-61)
[2022-06-05 07:38] LABS: BILIRUBIN,TOTAL 0.4 mg/dL (0.2-1); TOT PROT 5.5 g/dl (6.4-8.2)
[2022-06-05] MEDS: DEXTROSE 5%-0.45% SALINE 1,000 ML IV SCH ×4 (07:39→20:35)
[2022-06-05 07:40] LABS: ALBUMIN 1.4 g/dl (3.4-5.0); ALK PHOS 107 U/L (45-117); BLOOD UREA NITROGEN 108.5 mg/dL (7-18)
[2022-06-05 08:00] LABS: BASO % 0.8 % (0-2.0); EOS % 4.8 % (0-4.5); HEMATOCRIT 22.7 % (35.4-49); HEMOGLOBIN 7.5 GM/dL (11.7-16.9); LYMPH % 9.3 % (8-40); MCH 31.5 pg (25.7-33.7); MCHC 33.1 g/dl (32.0-35.9); MEAN CELL VOLUME 95.4 fl (80-96); MEAN PLT VOLUME 8.9 fl (7.5-11.1); MONO % 8.2 % (3.8-10.2); NEUT % 76.9 % (42.8-82.8); PLATELET COUNT 224 10^3/uL (134-434); RBC 2.38 M/mm3 (4.00-5.60); RDW 15.4 % (11.9-15.9); WHITE BLOOD COUNT 11.2 K/mm3 (4.0-10.0)
[2022-06-05] MEDS: METOPROLOL TARTRATE 50 MG TABLET (FP) GT SCH ×2 (09:44→23:12)
[2022-06-05] MEDS: FAMOTIDINE 20 MG TABLET NGT SCH (09:44)
[2022-06-05] MEDS: ASCORBIC ACID 500 MG/5 ML UNIT DOSE CUP GT SCH ×2 (09:45→23:13)
[2022-06-05] MEDS: HEPARIN NA (PORCINE) 5,000 UNITS/ML 1ML VIAL SQ SCH ×2 (09:45→23:12)
[2022-06-05] MEDS: NYSTATIN POWDER 100,000 UNITS/GM - 15 GM TOPICAL POWDER TP SCH ×2 (09:46→23:13)
[2022-06-05] MEDS ORDERED: PANTOPRAZOLE SODIUM 80 MG in SODIUM CHLORIDE 100 ML IVPB SCH (19:13)
[2022-06-05] MEDS ORDERED: DEXTROSE 2.5%-0.45% SALINE - 1,000 ML IV SCH (19:15)
[2022-06-05] MEDS ORDERED: SODIUM CHLORIDE 0.45% 1,000 ML IV SCH (19:15)
[2022-06-05] MEDS: PANTOPRAZOLE SODIUM 80 MG in SODIUM CHLORIDE 100 ML IVPB SCH (20:35)
[2022-06-05 22:49] LABS: HEMATOCRIT 21.3 % (35.4-49); MCH 30.8 pg (25.7-33.7); MCHC 32.3 g/dl (32.0-35.9); MEAN CELL VOLUME 95.3 fl (80-96); MEAN PLT VOLUME 8.8 fl (7.5-11.1); PLATELET COUNT 219 10^3/uL (134-434); RBC 2.23 M/mm3 (4.00-5.60); RDW 15.6 % (11.9-15.9); WHITE BLOOD COUNT 11.5 K/mm3 (4.0-10.0)
[2022-06-05 22:53] LABS: HEMOGLOBIN 6.9 GM/dL (11.7-16.9)
[2022-06-06] MEDS: PIPERACILLIN/TAZOB 3.375 GM 3.375 GM in DEXTROSE 5%-WATER - 50 ML IVPB SCH ×3 (02:12→17:57)
[2022-06-06] MEDS ORDERED: DEXTROSE 50%-WATER 25 GM/50 ML DISP.SYRIN IVPUSH PRN (05:02)
[2022-06-06] MEDS: INSULIN SLIDING SCALE (NOVOLOG) 1 VIAL SQ SCH ×4 (06:17→21:45)
[2022-06-06] MEDS: LEVOTHYROXINE NA 150 MCG TABLET GT SCH (06:17)
[2022-06-06] MEDS: DEXTROSE 5%-0.45% SALINE 1,000 ML IV SCH (06:45)
[2022-06-06] MEDS: PANTOPRAZOLE SODIUM 80 MG in SODIUM CHLORIDE 100 ML IVPB SCH (06:45)
[2022-06-06 07:54] LABS: TOTAL IRON BINDING CAPACITY 89 ug/dL (250-450)
[2022-06-06] MEDS: AMINO ACIDS/PROTEIN HYDROLYS 30 ML LIQUID.PKT GT SCH (07:54)
[2022-06-06 08:06] LABS: LDH 356 U/L (87-246)
[2022-06-06 08:18] LABS: CHLORIDE 106 mmol/L (98-107); SODIUM 137 mmol/L (136-145)
[2022-06-06 08:20] LABS: ALBUMIN 1.4 g/dl (3.4-5.0); ANION GAP 10 MMOL/L (8-16); CALCIUM 7.9 mg/dL (8.5-10.1); CO2 21 mmol/L (21-32)
[2022-06-06 08:21] LABS: MAGNESIUM 1.9 mg/dL (1.8-2.4)
[2022-06-06 08:23] LABS: CREATININE 1.9 mg/dL (0.55-1.3); PHOSPHOROUS 8.3 mg/dL (2.5-4.9); SGOT/AST 49 U/L (15-37); SGPT/ALT 47 U/L (13-61)
[2022-06-06 08:25] LABS: BILIRUBIN,TOTAL 0.5 mg/dL (0.2-1); TOT PROT 5.4 g/dl (6.4-8.2)
[2022-06-06 08:26] LABS: ALK PHOS 104 U/L (45-117)
[2022-06-06] MEDS ORDERED: LACTATED RINGERS SOLUTION 1,000 ML/1,000 ML INFUS.BAG IV SCH (08:45)
[2022-06-06 08:52] LABS: BLOOD UREA NITROGEN 105.4 mg/dL (7-18)
[2022-06-06 08:57] LABS: GLUCOSE,RANDOM 86 mg/dL (74-106)
[2022-06-06 09:27] LABS: BASO % 0.5 % (0-2.0); EOS % 5.8 % (0-4.5); HEMATOCRIT 25.9 % (35.4-49); HEMATOCRIT 26.2 % (35.4-49); HEMOGLOBIN 8.7 GM/dL (11.7-16.9); LYMPH % 6.6 % (8-40); MCH 30.8 pg (25.7-33.7); MCH 31.1 pg (25.7-33.7); MCHC 33.1 g/dl (32.0-35.9); MCHC 33.5 g/dl (32.0-35.9); MEAN CELL VOLUME 92.8 fl (80-96); MEAN CELL VOLUME 93.2 fl (80-96); MONO % 6.7 % (3.8-10.2); NEUT % 80.4 % (42.8-82.8); PLATELET COUNT 215 10^3/uL (134-434); PLATELET COUNT 217 10^3/uL (134-434); RBC 2.78 M/mm3 (4.00-5.60); RBC 2.82 M/mm3 (4.00-5.60); RDW 15.6 % (11.9-15.9); RDW 15.7 % (11.9-15.9); RETICULOCYTES 0.85 % (0.5-1.5); WHITE BLOOD COUNT 11.6 K/mm3 (4.0-10.0); WHITE BLOOD COUNT 11.7 K/mm3 (4.0-10.0)
[2022-06-06] MEDS: SODIUM ZIRCONIUM CYCLOSILICATE (LOKELMA) 5 GM PACKET GT SCH (11:09)
[2022-06-06] MEDS: METOPROLOL TARTRATE 50 MG TABLET (FP) GT SCH ×2 (11:10→21:45)
[2022-06-06] MEDS: ASCORBIC ACID 500 MG/5 ML UNIT DOSE CUP GT SCH ×2 (11:10→21:46)
[2022-06-06] MEDS: NYSTATIN POWDER 100,000 UNITS/GM - 15 GM TOPICAL POWDER TP SCH ×2 (11:13→21:45)
[2022-06-06 12:36] LABS: IRON SERUM 94 ug/dL (50-175)
[2022-06-06] MEDS: LIPASE/PROTEASE/AMYLASE 6,000 UNIT CAPSULE PO SCH ×2 (15:47→17:51)
[2022-06-06] MEDS: LACTATED RINGERS SOLUTION 1,000 ML/1,000 ML INFUS.BAG IV SCH (15:47)
[2022-06-06] MEDS: PANTOPRAZOLE SODIUM 40 MG VIAL IVPUSH SCH (21:45)
[2022-06-07] MEDS ORDERED: DEXTROSE 50%-WATER 25 GM/50 ML DISP.SYRIN IVPUSH PRN (00:44)
[2022-06-07] MEDS: PIPERACILLIN/TAZOB 3.375 GM 3.375 GM in DEXTROSE 5%-WATER - 50 ML IVPB SCH ×3 (01:21→17:24)
[2022-06-07] MEDS: INSULIN SLIDING SCALE (NOVOLOG) 1 VIAL SQ SCH ×4 (06:09→22:01)
[2022-06-07] MEDS: LEVOTHYROXINE NA 150 MCG TABLET GT SCH (06:09)
[2022-06-07 06:48] LABS: BASO % 0.7 % (0-2.0); EOS % 5.2 % (0-4.5); HEMOGLOBIN 8.5 GM/dL (11.7-16.9); LYMPH % 8.1 % (8-40); MCH 31.4 pg (25.7-33.7); MCHC 33.9 g/dl (32.0-35.9); MEAN CELL VOLUME 92.6 fl (80-96); MEAN PLT VOLUME 8.6 fl (7.5-11.1); MONO % 8.3 % (3.8-10.2); NEUT % 77.7 % (42.8-82.8); PLATELET COUNT 241 10^3/uL (134-434); RDW 16.3 % (11.9-15.9); WHITE BLOOD COUNT 11.8 K/mm3 (4.0-10.0)
[2022-06-07 07:01] LABS: CHLORIDE 105 mmol/L (98-107); SODIUM 137 mmol/L (136-145)
[2022-06-07 07:04] LABS: ALBUMIN 1.4 g/dl (3.4-5.0); ANION GAP 11 MMOL/L (8-16); CALCIUM 7.3 mg/dL (8.5-10.1); CO2 20 mmol/L (21-32); GLUCOSE,RANDOM 82 mg/dL (74-106); LIPASE 26 U/L (73-393)
[2022-06-07 07:05] LABS: AMYLASE 26 U/L (25-115)
[2022-06-07 07:07] LABS: CREATININE 2.1 mg/dL (0.55-1.3); SGOT/AST 38 U/L (15-37); SGPT/ALT 44 U/L (13-61)
[2022-06-07 07:08] LABS: TOT PROT 5.4 g/dl (6.4-8.2)
[2022-06-07 07:09] LABS: BILIRUBIN,TOTAL 0.3 mg/dL (0.2-1)
[2022-06-07 07:13] LABS: ALK PHOS 89 U/L (45-117); BLOOD UREA NITROGEN 105.8 mg/dL (7-18)
[2022-06-07] MEDS: AMINO ACIDS/PROTEIN HYDROLYS 30 ML LIQUID.PKT GT SCH (07:41)
[2022-06-07] MEDS: LIPASE/PROTEASE/AMYLASE 6,000 UNIT CAPSULE PO SCH (07:41)
[2022-06-07] MEDS: SODIUM ZIRCONIUM CYCLOSILICATE (LOKELMA) 5 GM PACKET GT SCH (09:34)
[2022-06-07] MEDS: ASCORBIC ACID 500 MG/5 ML UNIT DOSE CUP GT SCH ×2 (09:35→21:47)
[2022-06-07] MEDS: METOPROLOL TARTRATE 50 MG TABLET (FP) GT SCH ×2 (09:36→21:32)
[2022-06-07] MEDS: PANTOPRAZOLE SODIUM 40 MG VIAL IVPUSH SCH ×2 (09:36→21:32)
[2022-06-07] MEDS: NYSTATIN POWDER 100,000 UNITS/GM - 15 GM TOPICAL POWDER TP SCH ×2 (09:36→21:34)
[2022-06-07] MEDS: LACTATED RINGERS SOLUTION 1,000 ML/1,000 ML INFUS.BAG IV SCH (16:29)
[2022-06-07 17:56] LABS: IRON SERUM 87 ug/dL (50-175)
[2022-06-07 17:57] LABS: TOTAL IRON BINDING CAPACITY 79 ug/dL (250-450)
[2022-06-07] MEDS: POLYETHYLENE GLYCOL (HEALTHYLAX) 3350 17 GM PACKET GT SCH (21:32)
[2022-06-08] MEDS: PIPERACILLIN/TAZOB 3.375 GM 3.375 GM in DEXTROSE 5%-WATER - 50 ML IVPB SCH ×3 (02:11→17:12)
[2022-06-08] MEDS: POLYETHYLENE GLYCOL (HEALTHYLAX) 3350 17 GM PACKET GT SCH ×3 (06:24→21:39)
[2022-06-08] MEDS: INSULIN SLIDING SCALE (NOVOLOG) 1 VIAL SQ SCH ×4 (06:39→21:39)
[2022-06-08] MEDS: LEVOTHYROXINE NA 150 MCG TABLET GT SCH (06:56)
[2022-06-08] MEDS: AMINO ACIDS/PROTEIN HYDROLYS 30 ML LIQUID.PKT GT SCH (07:27)
[2022-06-08] MEDS: SODIUM ZIRCONIUM CYCLOSILICATE (LOKELMA) 5 GM PACKET GT SCH (09:50)
[2022-06-08] MEDS: PANTOPRAZOLE SODIUM 40 MG VIAL IVPUSH SCH ×2 (09:50→21:39)
[2022-06-08] MEDS: ASCORBIC ACID 500 MG/5 ML UNIT DOSE CUP GT SCH ×2 (09:50→21:42)
[2022-06-08] MEDS: METOPROLOL TARTRATE 50 MG TABLET (FP) GT SCH ×2 (09:50→21:39)
[2022-06-08] MEDS: NYSTATIN POWDER 100,000 UNITS/GM - 15 GM TOPICAL POWDER TP SCH ×2 (09:51→21:39)
[2022-06-08 11:06] LABS: BASO % 1.1 % (0-2.0); EOS % 5.3 % (0-4.5); HEMATOCRIT 24.1 % (35.4-49); HEMOGLOBIN 8.5 GM/dL (11.7-16.9); MCH 32.3 pg (25.7-33.7); MEAN CELL VOLUME 92.1 fl (80-96); MONO % 9.6 % (3.8-10.2); PLATELET COUNT 233 10^3/uL (134-434); RBC 2.62 M/mm3 (4.00-5.60); RDW 15.8 % (11.9-15.9); WHITE BLOOD COUNT 10.1 K/mm3 (4.0-10.0)
[2022-06-08 11:23] LABS: CALCIUM 7.2 mg/dL (8.5-10.1)
[2022-06-08 11:25] LABS: ALBUMIN 1.3 g/dl (3.4-5.0); BLOOD UREA NITROGEN 100.4 mg/dL (7-18)
[2022-06-08 11:28] LABS: CREATININE 2.2 mg/dL (0.55-1.3)
[2022-06-08 11:30] LABS: BILIRUBIN,TOTAL 0.2 mg/dL (0.2-1); TOT PROT 5.2 g/dl (6.4-8.2)
[2022-06-08] MEDS ORDERED: MIDAZOLAM HCL 5 MG/1 ML Single Dose Vial IVPUSH ONE (11:49)
[2022-06-08] MEDS ORDERED: PROPOFOL 200 MG/20 ML VIAL IVPUSH ONE ×2 (11:50→15:43)
[2022-06-08] MEDS: ALBUTEROL SO4 HFA INHALER IH SCH ×3 (12:43→20:35)
[2022-06-09] MEDS: ALBUTEROL SO4 HFA INHALER IH SCH ×6 (00:30→22:11)
[2022-06-09] MEDS: PIPERACILLIN/TAZOB 3.375 GM 3.375 GM in DEXTROSE 5%-WATER - 50 ML IVPB SCH ×3 (01:44→18:10)
[2022-06-09] MEDS: INSULIN SLIDING SCALE (NOVOLOG) 1 VIAL SQ SCH ×4 (06:11→22:13)
[2022-06-09] MEDS: LEVOTHYROXINE NA 150 MCG TABLET GT SCH (06:11)
[2022-06-09] MEDS: POLYETHYLENE GLYCOL (HEALTHYLAX) 3350 17 GM PACKET GT SCH ×3 (06:11→22:07)
[2022-06-09 07:42] LABS: BASO % 1.1 % (0-2.0); EOS % 7.6 % (0-4.5); HEMATOCRIT 24.6 % (35.4-49); HEMOGLOBIN 8.5 GM/dL (11.7-16.9); LYMPH % 10.5 % (8-40); MCH 31.9 pg (25.7-33.7); MCHC 34.4 g/dl (32.0-35.9); MEAN CELL VOLUME 92.6 fl (80-96); MEAN PLT VOLUME 9.1 fl (7.5-11.1); MONO % 9.3 % (3.8-10.2); NEUT % 71.5 % (42.8-82.8); PLATELET COUNT 243 10^3/uL (134-434); RBC 2.66 M/mm3 (4.00-5.60); RDW 15.8 % (11.9-15.9); WHITE BLOOD COUNT 10.2 K/mm3 (4.0-10.0)
[2022-06-09 07:58] LABS: CHLORIDE 107 mmol/L (98-107); SODIUM 138 mmol/L (136-145)
[2022-06-09 08:01] LABS: ALBUMIN 1.3 g/dl (3.4-5.0); ANION GAP 10 MMOL/L (8-16); CO2 21 mmol/L (21-32); GLUCOSE,RANDOM 92 mg/dL (74-106)
[2022-06-09 08:04] LABS: CREATININE 2.3 mg/dL (0.55-1.3); SGOT/AST 23 U/L (15-37); SGPT/ALT 34 U/L (13-61)
[2022-06-09 08:06] LABS: ALK PHOS 82 U/L (45-117); BILIRUBIN,TOTAL 0.3 mg/dL (0.2-1); TOT PROT 5.3 g/dl (6.4-8.2)
[2022-06-09 08:18] LABS: BLOOD UREA NITROGEN 106.2 mg/dL (7-18)
[2022-06-09] MEDS: AMINO ACIDS/PROTEIN HYDROLYS 30 ML LIQUID.PKT GT SCH (09:41)
[2022-06-09] MEDS: METOPROLOL TARTRATE 50 MG TABLET (FP) GT SCH ×2 (09:41→22:10)
[2022-06-09] MEDS: SODIUM ZIRCONIUM CYCLOSILICATE (LOKELMA) 5 GM PACKET GT SCH (09:41)
[2022-06-09] MEDS: PANTOPRAZOLE SODIUM 40 MG VIAL IVPUSH SCH ×2 (09:41→22:09)
[2022-06-09] MEDS: NYSTATIN POWDER 100,000 UNITS/GM - 15 GM TOPICAL POWDER TP SCH ×2 (09:42→22:10)
[2022-06-09] MEDS: ASCORBIC ACID 500 MG/5 ML UNIT DOSE CUP GT SCH ×2 (09:47→22:10)
[2022-06-09 14:28] VITALS: BMI 21.7
[2022-06-09] MEDS: CEFTAZIDIME PENTAHYDRATE 2 GM in DEXTROSE 5%-WATER 100 ML IVPB SCH (18:53)
[2022-06-10] MEDS: ALBUTEROL SO4 HFA INHALER IH SCH ×6 (01:13→20:30)
[2022-06-10] MEDS: INSULIN SLIDING SCALE (NOVOLOG) 1 VIAL SQ SCH ×4 (06:19→21:04)
[2022-06-10] MEDS: POLYETHYLENE GLYCOL (HEALTHYLAX) 3350 17 GM PACKET GT SCH ×3 (06:19→21:04)
[2022-06-10] MEDS: LEVOTHYROXINE NA 150 MCG TABLET GT SCH (06:28)
[2022-06-10] MEDS: METOPROLOL TARTRATE 50 MG TABLET (FP) GT SCH ×2 (09:05→21:04)
[2022-06-10] MEDS: NYSTATIN POWDER 100,000 UNITS/GM - 15 GM TOPICAL POWDER TP SCH ×2 (09:05→21:04)
[2022-06-10] MEDS: AMINO ACIDS/PROTEIN HYDROLYS 30 ML LIQUID.PKT GT SCH (09:05)
[2022-06-10] MEDS: ASCORBIC ACID 500 MG/5 ML UNIT DOSE CUP GT SCH ×2 (09:06→21:56)
[2022-06-10] MEDS: PANTOPRAZOLE SODIUM 40 MG VIAL IVPUSH SCH ×2 (09:06→21:05)
[2022-06-10 12:22] LABS: ALBUMIN 1.3 g/dl (3.4-5.0); CALCIUM 7.1 mg/dL (8.5-10.1)
[2022-06-10 12:23] LABS: BLOOD UREA NITROGEN 102.9 mg/dL (7-18)
[2022-06-10 12:26] LABS: CREATININE 2.5 mg/dL (0.55-1.3)
[2022-06-10 12:28] LABS: BILIRUBIN,TOTAL 0.2 mg/dL (0.2-1); TOT PROT 5.5 g/dl (6.4-8.2)
[2022-06-10] MEDS: CEFTAZIDIME PENTAHYDRATE 2 GM in DEXTROSE 5%-WATER 100 ML IVPB SCH (18:03)
[2022-06-11] MEDS: ALBUTEROL SO4 HFA INHALER IH SCH ×6 (00:40→20:51)
[2022-06-11] MEDS: POLYETHYLENE GLYCOL (HEALTHYLAX) 3350 17 GM PACKET GT SCH ×3 (05:28→21:55)
[2022-06-11] MEDS: LEVOTHYROXINE NA 150 MCG TABLET GT SCH (06:37)
[2022-06-11] MEDS: INSULIN SLIDING SCALE (NOVOLOG) 1 VIAL SQ SCH ×4 (06:38→21:55)
[2022-06-11] MEDS: AMINO ACIDS/PROTEIN HYDROLYS 30 ML LIQUID.PKT GT SCH (09:25)
[2022-06-11] MEDS: ASCORBIC ACID 500 MG/5 ML UNIT DOSE CUP GT SCH ×2 (09:25→21:54)
[2022-06-11] MEDS: METOPROLOL TARTRATE 50 MG TABLET (FP) GT SCH ×2 (09:25→21:54)
[2022-06-11] MEDS: PANTOPRAZOLE SODIUM 40 MG VIAL IVPUSH SCH ×2 (09:25→21:54)
[2022-06-11] MEDS: NYSTATIN POWDER 100,000 UNITS/GM - 15 GM TOPICAL POWDER TP SCH ×2 (09:26→21:56)
[2022-06-11 15:11] LABS: ATYPICAL pANCA <1:20 titer (Neg:<1:20); C-ANCA <1:20 titer (Neg:<1:20)
[2022-06-11] MEDS: CEFTAZIDIME PENTAHYDRATE 2 GM in DEXTROSE 5%-WATER 100 ML IVPB SCH (17:57)
[2022-06-12] MEDS: ALBUTEROL SO4 HFA INHALER IH SCH ×6 (00:41→21:14)
[2022-06-12] MEDS: LEVOTHYROXINE NA 150 MCG TABLET GT SCH (06:27)
[2022-06-12] MEDS: POLYETHYLENE GLYCOL (HEALTHYLAX) 3350 17 GM PACKET GT SCH ×3 (06:27→21:15)
[2022-06-12] MEDS: INSULIN SLIDING SCALE (NOVOLOG) 1 VIAL SQ SCH ×4 (06:28→23:14)
[2022-06-12 07:24] LABS: CHLORIDE 110 mmol/L (98-107); SODIUM 140 mmol/L (136-145)
[2022-06-12 07:26] LABS: ANION GAP 10 MMOL/L (8-16); CO2 21 mmol/L (21-32); GLUCOSE,RANDOM 102 mg/dL (74-106)
[2022-06-12 07:27] LABS: ALBUMIN 1.3 g/dl (3.4-5.0)
[2022-06-12 07:29] LABS: CREATININE 2.7 mg/dL (0.55-1.3); SGPT/ALT 28 U/L (13-61)
[2022-06-12 07:30] LABS: SGOT/AST 20 U/L (15-37)
[2022-06-12 07:31] LABS: BILIRUBIN,TOTAL 0.2 mg/dL (0.2-1); TOT PROT 5.6 g/dl (6.4-8.2)
[2022-06-12 07:32] LABS: ALK PHOS 90 U/L (45-117)
[2022-06-12 07:45] LABS: BLOOD UREA NITROGEN 112.9 mg/dL (7-18)
[2022-06-12 07:47] LABS: EOS % 7.2 % (0-4.5); HEMATOCRIT 23.3 % (35.4-49); HEMOGLOBIN 7.9 GM/dL (11.7-16.9); LYMPH % 11.9 % (8-40); MCH 31.4 pg (25.7-33.7); MCHC 33.9 g/dl (32.0-35.9); MEAN CELL VOLUME 92.6 fl (80-96); MEAN PLT VOLUME 8.1 fl (7.5-11.1); MONO % 10.5 % (3.8-10.2); NEUT % 69.4 % (42.8-82.8); PLATELET COUNT 284 10^3/uL (134-434); RBC 2.52 M/mm3 (4.00-5.60); RDW 15.3 % (11.9-15.9); WHITE BLOOD COUNT 9.4 K/mm3 (4.0-10.0)
[2022-06-12] MEDS: METOPROLOL TARTRATE 50 MG TABLET (FP) GT SCH ×2 (10:05→21:15)
[2022-06-12] MEDS: AMINO ACIDS/PROTEIN HYDROLYS 30 ML LIQUID.PKT GT SCH (10:05)
[2022-06-12] MEDS: PANTOPRAZOLE SODIUM 40 MG VIAL IVPUSH SCH ×2 (10:06→21:16)
[2022-06-12] MEDS: NYSTATIN POWDER 100,000 UNITS/GM - 15 GM TOPICAL POWDER TP SCH ×2 (13:40→23:42)
[2022-06-12] MEDS: ASCORBIC ACID 500 MG/5 ML UNIT DOSE CUP GT SCH ×2 (13:40→21:22)
[2022-06-12] MEDS: CEFTAZIDIME PENTAHYDRATE 2 GM in DEXTROSE 5%-WATER 100 ML IVPB SCH (18:21)
[2022-06-13] MEDS: ALBUTEROL SO4 HFA INHALER IH SCH ×7 (00:40→23:05)
[2022-06-13] MEDS: LEVOTHYROXINE NA 150 MCG TABLET GT SCH (07:20)
[2022-06-13] MEDS: POLYETHYLENE GLYCOL (HEALTHYLAX) 3350 17 GM PACKET GT SCH ×3 (07:20→21:05)
[2022-06-13] MEDS: INSULIN SLIDING SCALE (NOVOLOG) 1 VIAL SQ SCH ×4 (07:29→21:48)
[2022-06-13 07:56] LABS: CHLORIDE 112 mmol/L (98-107); SODIUM 141 mmol/L (136-145)
[2022-06-13 07:58] LABS: ALBUMIN 1.2 g/dl (3.4-5.0); ANION GAP 10 MMOL/L (8-16); CO2 19 mmol/L (21-32); GLUCOSE,RANDOM 89 mg/dL (74-106)
[2022-06-13 08:01] LABS: CREATININE 2.8 mg/dL (0.55-1.3); SGOT/AST 26 U/L (15-37); SGPT/ALT 28 U/L (13-61)
[2022-06-13 08:03] LABS: BILIRUBIN,TOTAL 0.2 mg/dL (0.2-1); TOT PROT 5.7 g/dl (6.4-8.2)
[2022-06-13 08:04] LABS: ALK PHOS 95 U/L (45-117)
[2022-06-13] MEDS: METOPROLOL TARTRATE 50 MG TABLET (FP) GT SCH ×2 (09:12→21:07)
[2022-06-13] MEDS: PANTOPRAZOLE SODIUM 40 MG VIAL IVPUSH SCH ×2 (09:12→21:07)
[2022-06-13] MEDS: ASCORBIC ACID 500 MG/5 ML UNIT DOSE CUP GT SCH ×2 (09:12→21:08)
[2022-06-13] MEDS: AMINO ACIDS/PROTEIN HYDROLYS 30 ML LIQUID.PKT GT SCH (09:12)
[2022-06-13] MEDS: NYSTATIN POWDER 100,000 UNITS/GM - 15 GM TOPICAL POWDER TP SCH ×2 (10:22→21:07)
[2022-06-13] MEDS: SODIUM CHLORIDE 0.45% 1,000 ML IV SCH (12:03)
[2022-06-13] MEDS: CEFTAZIDIME PENTAHYDRATE 2 GM in DEXTROSE 5%-WATER 100 ML IVPB SCH (18:25)
[2022-06-14] MEDS: SODIUM CHLORIDE 0.45% 1,000 ML IV SCH ×2 (01:15→12:49)
[2022-06-14] MEDS: ALBUTEROL SO4 HFA INHALER IH SCH ×6 (05:00→23:18)
[2022-06-14] MEDS: INSULIN SLIDING SCALE (NOVOLOG) 1 VIAL SQ SCH ×4 (06:33→21:20)
[2022-06-14] MEDS: LEVOTHYROXINE NA 150 MCG TABLET GT SCH (06:33)
[2022-06-14] MEDS: POLYETHYLENE GLYCOL (HEALTHYLAX) 3350 17 GM PACKET GT SCH ×3 (06:33→21:20)
[2022-06-14 07:39] LABS: HEMATOCRIT 25.6 % (35.4-49); HEMOGLOBIN 8.8 GM/dL (11.7-16.9); MCH 31.2 pg (25.7-33.7); MCHC 34.3 g/dl (32.0-35.9); MEAN CELL VOLUME 90.9 fl (80-96); MEAN PLT VOLUME 8.6 fl (7.5-11.1); PLATELET COUNT 296 10^3/uL (134-434); RBC 2.82 M/mm3 (4.00-5.60); RDW 16.6 % (11.9-15.9); WHITE BLOOD COUNT 11.4 K/mm3 (4.0-10.0)
[2022-06-14 07:45] LABS: CHLORIDE 109 mmol/L (98-107); SODIUM 140 mmol/L (136-145)
[2022-06-14 07:55] LABS: ANION GAP 10 MMOL/L (8-16); CALCIUM 7.2 mg/dL (8.5-10.1); CO2 21 mmol/L (21-32)
[2022-06-14 07:56] LABS: GLUCOSE,RANDOM 100 mg/dL (74-106)
[2022-06-14 07:59] LABS: CREATININE 2.8 mg/dL (0.55-1.3)
[2022-06-14 08:16] LABS: BLOOD UREA NITROGEN 117.3 mg/dL (7-18)
[2022-06-14] MEDS: PANTOPRAZOLE SODIUM 40 MG VIAL IVPUSH SCH ×2 (09:45→21:21)
[2022-06-14] MEDS: AMINO ACIDS/PROTEIN HYDROLYS 30 ML LIQUID.PKT GT SCH (09:45)
[2022-06-14] MEDS: ASCORBIC ACID 500 MG/5 ML UNIT DOSE CUP GT SCH ×2 (09:45→21:21)
[2022-06-14] MEDS: METOPROLOL TARTRATE 50 MG TABLET (FP) GT SCH ×2 (09:45→21:21)
[2022-06-14] MEDS: NYSTATIN POWDER 100,000 UNITS/GM - 15 GM TOPICAL POWDER TP SCH ×2 (09:46→21:21)
[2022-06-14] MEDS: CEFTAZIDIME PENTAHYDRATE 2 GM in DEXTROSE 5%-WATER 100 ML IVPB SCH (17:46)
[2022-06-14] MEDS ORDERED: SCOPOLAMINE HYDROBROMIDE 1 PATCH PATCH.TD72 TD SCH (22:30)
[2022-06-15] MEDS: ALBUTEROL SO4 HFA INHALER IH SCH ×4 (04:28→15:30)
[2022-06-15] MEDS: LEVOTHYROXINE NA 150 MCG TABLET GT SCH (06:52)
[2022-06-15] MEDS: POLYETHYLENE GLYCOL (HEALTHYLAX) 3350 17 GM PACKET GT SCH ×3 (06:54→22:39)
[2022-06-15] MEDS: INSULIN SLIDING SCALE (NOVOLOG) 1 VIAL SQ SCH ×4 (06:54→22:40)
[2022-06-15] MEDS: AMINO ACIDS/PROTEIN HYDROLYS 30 ML LIQUID.PKT GT SCH (09:00)
[2022-06-15] MEDS: METOPROLOL TARTRATE 50 MG TABLET (FP) GT SCH ×2 (09:33→22:40)
[2022-06-15] MEDS: ASCORBIC ACID 500 MG/5 ML UNIT DOSE CUP GT SCH ×2 (09:33→22:44)
[2022-06-15] MEDS: PANTOPRAZOLE SODIUM 40 MG VIAL IVPUSH SCH ×2 (09:33→22:44)
[2022-06-15] MEDS: NYSTATIN POWDER 100,000 UNITS/GM - 15 GM TOPICAL POWDER TP SCH ×2 (09:34→22:45)
[2022-06-15 12:27] LABS: HEMATOCRIT 26.2 % (35.4-49); HEMOGLOBIN 8.9 GM/dL (11.7-16.9); MCHC 33.9 g/dl (32.0-35.9); MEAN CELL VOLUME 91.4 fl (80-96); MEAN PLT VOLUME 8.6 fl (7.5-11.1); PLATELET COUNT 305 10^3/uL (134-434); RBC 2.87 M/mm3 (4.00-5.60); RDW 16.1 % (11.9-15.9); WHITE BLOOD COUNT 12.5 K/mm3 (4.0-10.0)
[2022-06-15 12:50] LABS: CHLORIDE 108 mmol/L (98-107); SODIUM 136 mmol/L (136-145)
[2022-06-15 12:52] LABS: CALCIUM 7.3 mg/dL (8.5-10.1)
[2022-06-15 12:53] LABS: ANION GAP 9 MMOL/L (8-16); CO2 19 mmol/L (21-32); GLUCOSE,RANDOM 84 mg/dL (74-106)
[2022-06-15 12:56] LABS: CREATININE 2.9 mg/dL (0.55-1.3)
[2022-06-15 12:57] LABS: BLOOD UREA NITROGEN 118.6 mg/dL (7-18)
[2022-06-15] MEDS ORDERED: FUROSEMIDE 40 MG/4 ML INJECTABLE VIAL IVPUSH ONE (14:55)
[2022-06-15] MEDS ORDERED: SODIUM ZIRCONIUM CYCLOSILICATE (LOKELMA) 5 GM PACKET PO SCH (15:15)
[2022-06-15] MEDS: ACETAMINOPHEN 650 MG/20.3 ML ORAL SOLUTION (CUPS) GT PRN ×2 (16:15→22:47)
[2022-06-15 17:08] LABS: FREE KAPPA,SERUM 235.1 mg/L (3.3-19.4)
[2022-06-15] MEDS: CEFTAZIDIME PENTAHYDRATE 2 GM in DEXTROSE 5%-WATER 100 ML IVPB SCH (17:51)
[2022-06-15] MEDS: HEPARIN NA (PORCINE) 5,000 UNITS/ML 1ML VIAL SQ SCH (22:39)
[2022-06-16] MEDS: POLYETHYLENE GLYCOL (HEALTHYLAX) 3350 17 GM PACKET GT SCH ×3 (05:18→21:02)
[2022-06-16] MEDS: INSULIN SLIDING SCALE (NOVOLOG) 1 VIAL SQ SCH ×4 (06:58→21:07)
[2022-06-16] MEDS: LEVOTHYROXINE NA 150 MCG TABLET GT SCH (06:58)
[2022-06-16] MEDS: AMINO ACIDS/PROTEIN HYDROLYS 30 ML LIQUID.PKT GT SCH (08:57)
[2022-06-16] MEDS: HEPARIN NA (PORCINE) 5,000 UNITS/ML 1ML VIAL SQ SCH ×2 (10:16→21:08)
[2022-06-16] MEDS: METOPROLOL TARTRATE 50 MG TABLET (FP) GT SCH ×2 (10:17→21:54)
[2022-06-16] MEDS: ASCORBIC ACID 500 MG/5 ML UNIT DOSE CUP GT SCH ×2 (10:18→21:08)
[2022-06-16] MEDS: NYSTATIN POWDER 100,000 UNITS/GM - 15 GM TOPICAL POWDER TP SCH ×2 (10:18→21:08)
[2022-06-16] MEDS: PANTOPRAZOLE SODIUM 40 MG VIAL IVPUSH SCH ×2 (10:18→21:08)
[2022-06-16] MEDS: ALBUTEROL SO4 HFA INHALER IH SCH ×5 (10:19→23:44)
[2022-06-16] MEDS: FUROSEMIDE INJECTION 100 MG in SODIUM CHLORIDE 90 ML IVPB SCH ×2 (11:18→11:19)
[2022-06-16 11:52] LABS: CHLORIDE 106 mmol/L (98-107); SODIUM 136 mmol/L (136-145)
[2022-06-16 11:54] LABS: CALCIUM 7.7 mg/dL (8.5-10.1)
[2022-06-16 11:55] LABS: ALBUMIN 1.2 g/dl (3.4-5.0); ANION GAP 9 MMOL/L (8-16); CO2 21 mmol/L (21-32); GLUCOSE,RANDOM 136 mg/dL (74-106)
[2022-06-16 11:58] LABS: CREATININE 3.2 mg/dL (0.55-1.3); SGOT/AST 26 U/L (15-37); SGPT/ALT 26 U/L (13-61)
[2022-06-16 11:59] LABS: BILIRUBIN,TOTAL 0.2 mg/dL (0.2-1)
[2022-06-16 12:00] LABS: TOT PROT 6.1 g/dl (6.4-8.2)
[2022-06-16 12:01] LABS: ALK PHOS 107 U/L (45-117)
[2022-06-16 12:23] LABS: BLOOD UREA NITROGEN 127.4 mg/dL (7-18)
[2022-06-16] MEDS: CEFTAZIDIME PENTAHYDRATE 2 GM in DEXTROSE 5%-WATER 100 ML IVPB SCH (18:38)
[2022-06-16] MEDS: ACETAMINOPHEN 650 MG/20.3 ML ORAL SOLUTION (CUPS) GT PRN (18:38)
[2022-06-16] MEDS ORDERED: ALBUTEROL SULFATE 0.021% (0.63 MG/3 ML) VIAL.NEB NEB ONE (20:40)
[2022-06-16] MEDS ORDERED: ALBUTEROL SO4 0.083% IH SOL 2.5 MG/3 ML VIAL.NEB. NEB ONE (21:56)
[2022-06-17] MEDS: ALBUTEROL SO4 HFA INHALER IH SCH ×2 (04:29→07:55)
[2022-06-17] MEDS: POLYETHYLENE GLYCOL (HEALTHYLAX) 3350 17 GM PACKET GT SCH (05:48)
[2022-06-17] MEDS: LEVOTHYROXINE NA 150 MCG TABLET GT SCH (06:00)
[2022-06-17] MEDS: INSULIN SLIDING SCALE (NOVOLOG) 1 VIAL SQ SCH (06:00)
[2022-06-17 08:29] LABS: URINE APPEARANCE TURBID; URINE BILIRUBIN NEGATIVE (NEGATIVE); URINE COLOR YELLOW; URINE GLUCOSE (UA) NEGATIVE (NEGATIVE)
[2022-06-17 08:30] LABS: PH,URINE 5.5 (5.0-8.0); URINE KETONE NEGATIVE (NEGATIVE); URINE LEUK ESTERASE 4+ (NEGATIVE); URINE NITRITE NEGATIVE (NEGATIVE); URINE PROTEIN 3+ (NEGATIVE); URINE RBC FEW /uL (0-23.9); URINE UROBILINOGEN 0.2 mg/dL (0.2-1.0); URINE WBC MANY /uL (0-25.8)
[2022-06-17 08:31] LABS: EPI CELLS NO SEEN /uL (0-25.1); URINE BACTERIA FEW /uL (0-1359); YEAST MODERATE (NEGATIVE)
[2022-06-17] MEDS: METOPROLOL TARTRATE 50 MG TABLET (FP) GT SCH (09:14)
[2022-06-17] MEDS: HEPARIN NA (PORCINE) 5,000 UNITS/ML 1ML VIAL SQ SCH (09:14)
[2022-06-17] MEDS: ACETAMINOPHEN 650 MG/20.3 ML ORAL SOLUTION (CUPS) GT PRN (09:14)
[2022-06-17] MEDS: NYSTATIN POWDER 100,000 UNITS/GM - 15 GM TOPICAL POWDER TP SCH ×2 (09:15→21:05)
[2022-06-17] MEDS: AMINO ACIDS/PROTEIN HYDROLYS 30 ML LIQUID.PKT GT SCH (09:15)
[2022-06-17] MEDS: PANTOPRAZOLE SODIUM 40 MG VIAL IVPUSH SCH (09:15)
[2022-06-17 16:06] LABS: VITAMIN E (B-GAMMA) 0.2 mg/L (0.5-4.9)
[2022-06-17 16:30] VITALS: BP 118/70; TEMP 99.1
[2022-06-17] MEDS ORDERED: LORazepam 2 MG/ML SDV VIAL IVPUSH PRN (19:12)
[2022-06-17] MEDS: ASCORBIC ACID 500 MG/5 ML UNIT DOSE CUP GT SCH (19:23)
[2022-06-17] MEDS: MORPHINE SULFATE/0.9% NACL/PF 100 MG/100 ML BAG IVPB SCH (19:51)
[2022-06-18 08:02] VITALS: PULSE 88
[2022-06-18] MEDS: NYSTATIN POWDER 100,000 UNITS/GM - 15 GM TOPICAL POWDER TP SCH (11:07)
[2022-06-18] MEDS: MORPHINE SULFATE/0.9% NACL/PF 100 MG/100 ML BAG IVPB SCH (14:20)
[2022-06-18 14:44] VITALS: RESP 16
== END 2022-06-18 18:15 | disposition expired | DRG 870 ==
LOC: JER 07:50 → JERBED 10:28 → JICU 17:07 → J2W 18:11
PROVIDERS: ADMIT Internal Medicine; ATTEND Family Medicine
PROC: 5A1955Z Respiratory Ventilation, Greater than 96 Consecutive Hours (ICD-10-PCS; principal; 2022-06-03)
PROC: 0BC78ZZ Extirpation of Matter from Left Main Bronchus, Via Natural or Artificial Opening Endoscopic (ICD-10-PCS; 2022-06-08)
DX: A41.9 Sepsis, unspecified organism (principal); J18.9 Pneumonia, unspecified organism; G93.41 Metabolic encephalopathy; J96.22 Acute and chronic respiratory failure with hypercapnia; N17.9 Acute kidney failure, unspecified; R64 Cachexia; Z99.11 Dependence on respirator [ventilator] status; E87.29 Other acidosis; G93.1 Anoxic brain damage, not elsewhere classified; E87.1 Hypo-osmolality and hyponatremia; K92.2 Gastrointestinal hemorrhage, unspecified; J98.11 Atelectasis; T17.590A Other foreign object in bronchus causing asphyxiation, initial encounter; R57.9 Shock, unspecified; J44.9 Chronic obstructive pulmonary disease, unspecified; E11.9 Type 2 diabetes mellitus without complications; R13.10 Dysphagia, unspecified; E03.9 Hypothyroidism, unspecified; D64.9 Anemia, unspecified; E87.5 Hyperkalemia; Z86.16 Personal history of COVID-19; Z86.74 Personal history of sudden cardiac arrest; Z68.22 Body mass index [BMI] 22.0-22.9, adult; N40.0 Benign prostatic hyperplasia without lower urinary tract symptoms; I11.0 Hypertensive heart disease with heart failure; I50.9 Heart failure, unspecified; L89.152 Pressure ulcer of sacral region, stage 2; F20.9 Schizophrenia, unspecified; K21.9 Gastro-esophageal reflux disease without esophagitis; I35.0 Nonrheumatic aortic (valve) stenosis; F41.9 Anxiety disorder, unspecified; X58.XXXA Exposure to other specified factors, initial encounter; Y93.89 Activity, other specified; Y92.230 Patient room in hospital as the place of occurrence of the external cause; Y99.8 Other external cause status; Z93.1 Gastrostomy status; Z79.4 Long term (current) use of insulin
CPT/HCPCS: 0241U-QW; 36415; 36430; 36600; 70450-TC; 71045-TC-FY; 71250-TC; 74176-TC; 76775-TC; 80048; 80053; 81003; 82150; 82272; 82306; 82436; 82553; 82570; 82607; 82656; 82728; 82746; 82784; 82803; 82962; 83520; 83540; 83550; 83605; 83615; 83690; 83735; 83880; 83883; 84100; 84132; 84133; 84155; 84165; 84300; 84443; 84446; 84484; 84590; 84597; 85025; 85027; 85045; 85610; 85730; 86038; 86140; 86160; 86225; 86256; 86850; 86900; 86901; 86922; 87040; 87070; 87077; 87081; 87086; 87186; 87205; 87324; 87449; 93005; 93010; 93970-TC; 94002; 94640; 97161-GP; 99285-25; C9803-CS; G0480; J1644; P9058; U0003; U0005